=== PATIENT | female | born 1940 | race American Indian/Alaskan Native ===

== ENCOUNTER 2016-12-22 15:09 | Inpatient (IN) | payer MEDICARE ==
[2016-12-22 16:30] LABS: Basophils % (Auto) 0.6 % (0.0-1.8); Hematocrit 43.8 % (30.3-42.9); Hemoglobin 14.4 gm/dl (10.1-14.3); Mean Corpuscular HGB Conc 33 % (30-34); Mean Corpuscular Hemoglobin 30 pg (28-32); Mean Corpuscular Volume 90 fl (79-97); Platelet Count 240 K/mm3 (140-440); Red Blood Count 4.86 M/mm3 (3.65-5.03); Red Cell Distribution Width 14.1 % (13.2-15.2); White Blood Count 8.6 K/mm3 (4.5-11.0)
[2016-12-22 16:52] LABS: BUN/Creatinine Ratio 23.33; Blood Urea Nitrogen 14 mg/dL (7-17); Calcium 9.3 mg/dL (8.4-10.2); Carbon Dioxide 30 mmol/L (22-30); Glucose 131 mg/dL (65-100); Potassium 3.7 mmol/L (3.6-5.0); Sodium 142 mmol/L (137-145)
[2016-12-22 17:05] LABS: Anion Gap 16 mmol/L
--- NOTE | 2016-12-22 18:15 | Emergency Department Report ---
ED Chest Pain HPI - General Chief Complaint: Chest Pain Stated Complaint: CHEST PAIN Time Seen by Provider: 12/22/16 17:42 Source: patient, family, EMS, old records reviewed (no previous meditech record) Mode of arrival: Stretcher Limitations: No Limitations - History of Present Illness Initial Comments: 76 yo female a past medical history CVA with residual left-sided deficit, diabetes, GERD, and hypertension presents to the hospital complaints of chest pain one prior to arrival. Chest pain was sudden onset after eating breakfast described as a tightness in 8/10 intensity. No radiation reported. Patient denies associated symptoms including shortness of breath, nausea, vomiting, or diaphoresis. Patient states pain is similar to previous GERD attacks but more severe and not bearable this time so she came to the ED. She drank boiling hot water and baking soda and states that that helped her pain prior to arrival. Patient has not had a stress test in many years. Her PMD is [facility]. Severity scale (0 -10): 0 - Related Data Home Medications Medication Instructions Recorded Confirmed Last Taken Unobtainable 12/22/16 12/22/16 Unknown Allergies Allergy/AdvReac Type Severity Reaction Status Date / Time No Known Allergies Allergy Unverified 12/22/16 15:59 STEFANIE score - Stefanie Score Age > 65: (1) Yes Aspirin use within the Past 7 Days: (0) No 3 or more CAD Risk Factors: (1) Yes 2 or more Angina events in past 24 hrs: (1) Yes Known CAD with more than 50% Stenosis: (0) No Elevated Cardiac Markers: (0) No ST Deviation Greater than 0.5mm: (0) No STEFANIE Score: 3 ED Review of Systems ROS: Stated complaint: CHEST PAIN Other details as noted in HPI Comment: All other systems reviewed and negative Other: Constitutional: No fevers chills Eyes: No eye pain visual changes ENT: No ear pain or throat pain Neck: Denies pain Respiratory: Denies cough wheezing shortness of breath Cardiovascular: Denies chest pain, palpitations, syncope GI: Denies abdominal pain, nausea, vomiting, diarrhea : Denies dysuria, urinary frequency, or urgency Musculoskeletal: Denies back pain, joint swelling Skin: Denies rash, lesions, erythema Neurologic: Denies headache, numbness, weakness Psychiatric: Denies suicidal ideation, hallucinations ED Past Medical Hx - Past Medical History Previous Medical History?: Yes Hx Hypertension: Yes Hx CVA: Yes Hx Diabetes: Yes Hx GERD: Yes Additional medical history: hyperlipidemia - Surgical History Past Surgical History?: No - Social History Smoking Status: Current Every Day Smoker Substance Use Type: None - Medications Home Medications: Home Medications Medication Instructions Recorded Confirmed Last Taken Type Unobtainable 12/22/16 12/22/16 Unknown History ED Physical Exam - General Limitations: No Limitations - Other Other exam information: General: No limitations, patient is alert in no acute distress Head exam: Atraumatic, normocephalic Eyes exam: Normal appearance, pupils equal reactive to light, extraocular movements intact ENT: Moist mucous membrane, normal oropharynx Neck exam: Normal inspection, full range of motion, no meningismus nontender Respiratory exam: Clear to auscultation bilateral, no wheezes, rales, crackles Cardiovascular: Normal rate and rhythm, normal heart sounds Abdomen: Soft, nondistended, and nontender, with normal bowel sounds, no rebound, or guarding Extremity: Full range of motion normal inspection no deformity Back: Normal Inspection, full range of motion, no tenderness Neurologic: Alert, oriented x3, cranial nerves intact, no motor or sensory deficit Psychiatric: normal affect, normal mood Skin: Warm, dry, intact ED Course Vital Signs 12/22/16 12/22/16 12/22/16 15:44 15:51 15:54 Temperature 98.5 F Pulse Rate 99 H Respiratory 18 Rate Blood Pressure 158/71 152/73 Blood Pressure 152/73 [Right] O2 Sat by Pulse 99 99 99 Oximetry 12/22/16 12/22/16 12/22/16 16:00 16:10 16:11 Temperature Pulse Rate Respiratory 14 Rate Blood Pressure 130/77 130/77 Blood Pressure [Right] O2 Sat by Pulse 98 98 100 Oximetry 12/22/16 12/22/16 12/22/16 16:21 16:30 16:41 Temperature Pulse Rate Respiratory Rate Blood Pressure 130/77 137/73 130/77 Blood Pressure [Right] O2 Sat by Pulse 98 98 99 Oximetry 12/22/16 12/22/16 12/22/16 16:51 17:00 17:08 Temperature 98.6 F Pulse Rate 89 Respiratory Rate Blood Pressure 130/77 136/66 Blood Pressure [Right] O2 Sat by Pulse 99 99 Oximetry 0212/22/16 12/22/16 17:10 17:21 17:30 Temperature Pulse Rate 97 H 96 H 84 Respiratory 14 20 14 Rate Blood Pressure 136/66 137/73 147/77 Blood Pressure [Right] O2 Sat by Pulse 98 70 L 99 Oximetry 12/22/16 12/22/16 12/22/16 17:41 17:51 18:00 Temperature Pulse Rate 88 84 84 Respiratory 18 15 20 Rate Blood Pressure 147/77 147/77 147/84 Blood Pressure [Right] O2 Sat by Pulse 100 95 99 Oximetry 12/22/16 12/22/16 12/22/16 18:11 18:21 18:30 Temperature Pulse Rate 82 87 83 Respiratory 12 16 8 L Rate Blood Pressure 136/66 136/66 151/83 Blood Pressure [Right] O2 Sat by Pulse 98 97 99 Oximetry 12/22/16 12/22/16 12/22/16 18:41 18:51 19:01 Temperature Pulse Rate 84 96 H 92 H Respiratory 16 14 11 L Rate Blood Pressure 151/83 151/83 166/81 Blood Pressure [Right] O2 Sat by Pulse 99 98 94 Oximetry 12/22/16 12/22/16 12/22/16 19:11 19:18 19:21 Temperature 98.6 F Pulse Rate 92 H 89 Respiratory 17 14 13 Rate Blood Pressure 166/81 166/81 Blood Pressure 150/90 [Right] O2 Sat by Pulse 97 98 88 Oximetry 12/22/16 12/22/16 12/22/16 19:30 19:41 19:54 Temperature Pulse Rate 85 85 85 Respiratory 15 10 L 18 Rate Blood Pressure 173/80 173/80 Blood Pressure 143/61 [Right] O2 Sat by Pulse 98 99 98 Oximetry - Reevaluation(s) Reevaluation #1: 12/22/16 19:25 Patient given aspirin in the ED. Remained pain-free ED Medical Decision Making - Lab Data Result diagrams: 12/22/16 16:19 12/22/16 16:19 Lab Results 12/22/16 12/22/16 Range/Units 16:19 16:19 WBC 8.6 (4.5-11.0) K/mm3 RBC 4.86 (3.65-5.03) M/mm3 Hgb 14.4 H (10.1-14.3) gm/dl Hct 43.8 H (30.3-42.9) % MCV 90 (79-97) fl MCH 30 (28-32) pg MCHC 33 (30-34) % RDW 14.1 (13.2-15.2) % Plt Count 240 (140-440) K/mm3 Lymph % (Auto) 21.3 (13.4-35.0) % [place] % (Auto) 9.1 H (0.0-7.3) % Eos % (Auto) 1.0 (0.0-4.3) % Baso % (Auto) 0.6 (0.0-1.8) % Lymph # 1.8 (1.2-5.4) K/mm3 [place] # 0.8 (0.0-0.8) K/mm3 Eos # 0.1 (0.0-0.4) K/mm3 Baso # 0.1 (0.0-0.1) K/mm3 Seg Neutrophils % 68.0 (40.0-70.0) % Seg Neutrophils # 5.9 (1.8-7.7) K/mm3 Sodium 142 (137-145) mmol/L Potassium 3.7 (3.6-5.0) mmol/L Chloride 100.0 (98-107) mmol/L Carbon Dioxide 30 (22-30) mmol/L Anion Gap 16 mmol/L BUN 14 (7-17) mg/dL Creatinine 0.6 L (0.7-1.2) mg/dL Estimated GFR > 60 ml/min BUN/Creatinine Ratio 23.33 % Glucose 131 H (65-100) mg/dL Calcium 9.3 (8.4-10.2) mg/dL Troponin T < 0.010 (0.00-0.029) ng/mL - EKG Data -: EKG Interpreted by Me (nsr, 87, lvh, inf infarct) - EKG Data When compared to previous EKG there are: previous EKG unavailable - Radiology Data Radiology results: report reviewed (cxr: naf) - Medical Decision Making Plan to admit to the hospital for further cardiac workup. No signs of STEMI at this time. - Differential Diagnosis atypical chest pain, SD, unstable angina, GERD Critical Care Time: No Critical care attestation.: If time is entered above; I have spent that time in minutes in the direct care of this critically ill patient, excluding procedure time. ED Disposition Clinical Impression: Chest pain, HTN (hypertension), Diabetes, History of CVA with residual deficit , Hx of gastroesophageal reflux (GERD) Disposition: OP ADMITTED IP TO THIS HOSP Is pt being admited?: Yes Does the pt Need Aspirin: Yes Condition: Stable Time of Disposition: 18:15
--- NOTE | 2016-12-22 18:31 | Admit Criteria Form ---
Admission Criteria Documentation: CHEST PAIN Clinical Indications for Admission to Inpatient Care (Place 'X' for any and all applicable criteria): Admission is indicated for chest pain and ANY ONE of the following(1)(2)(3)(4)(5 ): [ ]I. Angina with acute coronary syndrome (Also use Myocardial Infarction or Angina guideline) [ ]II. Hemodynamic instability [X]III. Angina needing acute intervention as indicated by ALL of the following( 11)(12): [X]a) Unstable angina is present as indicated by angina that is ANY ONE of the following: [X ]i) New onset [ ]ii) Nocturnal [ ]iii) Prolonged at rest [ ]iv) Progressive [X]b) Angina warrants acute intervention as indicated by ANY ONE of the following: [ ]i) Recurrent angina (e.g, not responding as previously to treatment) [X]ii) Angina at rest or with low-level activities despite initial medical therapy [ ]iii) New or presumably new ST-segment depression on ECG [ ]iv) Signs or symptoms of heart failure (eg, dyspnea, pulmonary edema) [ ]v) New or worsening mitral regurgitation [ ]vi) Hemodynamic instability [ ]vii) Dangerous arrhythmia (eg, sustained ventricular tachycardia) [ ]viii) History of percutaneous coronary intervention within 6 months [ ]ix) History of coronary artery bypass graft surgery [X]x) STEFANIE risk score of 2 or greater[A] [X]xi) History of Diabetes(14) [ ]xii) High-risk cardiac ischemia findings on noninvasive testing (e.g, echocardiogram, treadmill testing, nuclear scan) [ ]xiii) Chronic renal insufficiency (ie, estimated GFR less than 60 mL/min/1.732m) [ ]xiv) Left ventricular ejection fraction less than 40% [ ]IV. Evidence of NC (eg, cardiac biomarkers positive, ST-segment elevation on ECG) also use Myocardial Infarction Criteria Form. [ ]V. Pulmonary edema [ ]. Respiratory distress [ ]VII. Chest pain indicative of serious diagnosis other than coronary artery disease (eg, aortic dissection) [ ]VIII. Contraindications and/or Inappropriate clinical situations for Observational Care in patients with Chest Pain, when ANY ONE of the following is required: [ ]a) Patient with risk factor for pulmonary embolism, acute coronary syndrome and myocardial infarction (18) [ ]b) Patient with Pulmonary embolism require an average LOS of 4.3 days, therefore emergency department observation management is inappropriate 18,23 [ ]c) Painful condition/s in the elderly, have the highest rate of recidivism after emergency department observation management (10.8%) 20,21,22 [ ]d) Elevated cardiac biomarker requires intensive and exhaustive care (19) [ ]IX. General contraindications and/or Inappropriate clinical situations for Observational Care in patients with Chest Pain, when ANY ONE of the following is required: [ ]a) Prediction of prolongation of LOS based on ANY ONE of the following may be considered as a contraindication for observational care 2, 3, 4, 5, 6, 7, 8, 9, 10, 11 [ ]i) Age > 65 yrs. [ ]ii) Patient arriving by ambulance [ ]iii) Patient with high acuity [ ]iv) Patient requiring vital sign monitoring [ ]v) Patient on IV medication [ ]b) Systolic blood pressures 180mmHg 3,12 [ ]c) Patient with altered mental status including delirium and other alteration of consciousness, (3) [ ]d) Patient whose discharge disposition will be to a longterm home or rehabilitation home should not be managed in Emergency Department Observation Unit. CMS rule requires 3 days hospital stay before such placement. 3,13 [ ]e) Patient with failure to thrive due to broad array of etiologies 3,16,17 [ ]f) Inability to ambulate 3,14 Extended stay beyond goal length of stay may be needed for (1)(28): [ ]a) Specific condition diagnosed after evaluation (eg, pulmonary embolism, aortic dissection) [ ]b) Unstable angina [ ]c) Continued suspicion of acute coronary syndrome with inability to complete needed cardiac evaluation (eg, patient clinically unable to undergo stress testing) [ ]d) Myocardial infarction (Contents from ANGINA and CHEST PAIN clinical indications for admission to inpatient care have been integrated in this form) The original [employer] content created by [employer] has been revised. The portions of the content which have been revised are identified through the use of italic text or in bold, and [facility] has neither reviewed nor approved the modified material. All other unmodified content is copyright [employer]. Please see references footnoted in the original [facility] edition 2016 Admission Criteria Met: Yes
[2016-12-22] MEDS ORDERED: ASPIRIN PO ONE (18:36)
[2016-12-22] MEDS ORDERED: D50W (25GM) IV PRN (20:18)
[2016-12-22] MEDS ORDERED: NITROSTAT SL PRN (20:20)
--- NOTE | 2016-12-22 20:28 | History and Physical Report ---
History of Present Illness Date of examination: 12/22/16 Date of admission: 12/22/16 18:35 Chief complaint: Chest pain History of present illness: Patient is a 76-year-old woman history of CVA with left-sided deficit, type 2 diabetes mellitus, GERD and hypertension who presents with acute onset intermittent left sided dull tightness, nonradiating intermittent chest pain that felt like previous acid reflux that was relieved by drinking water with baking soda.the pain started after breakfast today. She denies any fevers, chills, nausea vomiting shortness of breath. She denies any severe headaches no other symptoms. Past History Past Medical History: other (as hpi) Past Surgical History: No surgical history Social history: smoking (assessment counselor on stopping to her and daughter Lauryn at bedside), full code. denies: alcohol abuse, prescription drug abuse, IV drug use Family history: no significant family history Medications and Allergies Allergies Allergy/AdvReac Type Severity Reaction Status Date / Time No Known Allergies Allergy Unverified 12/22/16 15:59 Home Medications Medication Instructions Recorded Confirmed Last Taken Type Unobtainable 12/22/16 12/22/16 Unknown History Active Meds: Active Medications Aspirin (Aspirin) 325 mg PO QDAY [facility] Atorvastatin Calcium (Lipitor) 40 mg PO QHS [facility] Dextrose (D50w (25gm)) 50 ml IV PRN PRN PRN Reason: Hypoglycemia Enoxaparin Sodium (Lovenox) 40 mg SUB-Q QDAY [facility] Insulin Aspart (Novolog) 0 units SUB-Q ACHS [facility] PRN Reason: Protocol Metoprolol Tartrate (Lopressor) 25 mg PO BID [facility] Nitroglycerin (Nitrostat) 0.4 mg SL .Q5MIN PRN PRN Reason: Chest Pain Review of Systems All systems: negative (as HPI and all other ROS reviewed and negative.) Exam - Physical Exam Narrative exam: GEN: WDWN, NAD, AWAKE, ALERT, ORIENTATED 3 HEENT: NCAT, PERRL, EOMI, OP WITH SEVERE peridontal DISEASE with LOOSE TEETH NECK: SUPPLE, NO THYROMEGALY, NO JVD, NO LAD CVS: RRR, NORMAL S1S2 LUNGS/CHEST: CTA B, NORMAL CHEST EXPANSION B, GOOD AIR ENTRY B ABD: SOFT NTND, GBS, NO REBOUND OR GUARDING EXT/SKIN: NO SIGNIFICANT EDEMA OR RASH MSK: FROM X 3 EXTREMITIES NEURO: CN 2-12 GROSSLY INTACT, NO NEW FOCAL DEFICITS, left-sided hemiparesis PSY: CALM - Constitutional Vitals: Temp Pulse Resp BP Pulse Ox 98.6 F 85 18 143/61 98 12/22/16 19:18 12/22/16 19:54 12/22/16 19:54 12/22/16 19:54 12/22/16 19:54 Results - Labs CBC & Chem 7: 12/22/16 16:19 12/22/16 16:19 Labs: Abnormal lab results 12/22/16 Range/Units 19:22 Troponin T 0.050 H D (0.00-0.029) ng/mL - Imaging and Cardiology EKG: image reviewed Assessment and Plan Patient is a 76-year-old woman history of CVA with left-sided deficit, type 2 diabetes mellitus, GERD and hypertension who presents with acute onset intermittent left sided dull tightness, nonradiating intermittent chest pain that felt like previous acid reflux that was relieved by drinking water with baking soda.the pain started after breakfast today. She denies any fevers, chills, nausea vomiting shortness of breath. She denies any severe headaches no other symptoms. 1. CP, ?GERD related: serial ce, stress test in am, treat with asa, bb, ntg and statin, ppi. Troponin went up slightly, consult Cardiology 2. Type 2 DM: ssi 3. Tobacco dependancy: nicotine patch 4. Htn: add BB
[2016-12-22] MEDS: LOPRESSOR PO SCH (22:49)
[2016-12-22] MEDS: NOVOLOG SUB-Q SCH (22:49)
[2016-12-23] MEDS: DILAUDID IM PRN ×2 (01:05→11:05)
[2016-12-23 06:21] LABS: Hematocrit 42.6 % (30.3-42.9); Hemoglobin 13.7 gm/dl (10.1-14.3); Mean Corpuscular HGB Conc 32 % (30-34); Mean Corpuscular Hemoglobin 29 pg (28-32); Mean Corpuscular Volume 89 fl (79-97); Platelet Count 220 K/mm3 (140-440); Red Blood Count 4.77 M/mm3 (3.65-5.03); Red Cell Distribution Width 14.1 % (13.2-15.2); White Blood Count 12.2 K/mm3 (4.5-11.0)
[2016-12-23] MEDS: ZOFRAN IV PRN ×2 (06:35→15:42)
[2016-12-23 06:52] LABS: BUN/Creatinine Ratio 21.42; Blood Urea Nitrogen 15 mg/dL (7-17); Calcium 9.6 mg/dL (8.4-10.2); Carbon Dioxide 29 mmol/L (22-30); Chloride 98.8 mmol/L (98-107); Glucose 182 mg/dL (65-100); Sodium 141 mmol/L (137-145)
[2016-12-23 07:13] LABS: Anion Gap 18 mmol/L; Potassium 4.5 mmol/L (3.6-5.0)
[2016-12-23 08:40] LABS: Creatine Kinase MB 6.7 ng/mL (0.0-4.0)
--- NOTE | 2016-12-23 09:38 | XRay Report ---
Single view chest: History: Chest pain. Findings: Cardiomegaly. Trachea is midline. No consolidation, pneumothorax or pleural effusion. Impression: No acute cardiopulmonary findings.
[2016-12-23] MEDS: HABITROL TD SCH (09:49)
[2016-12-23] MEDS: ASPIRIN PO SCH (09:49)
[2016-12-23] MEDS: NOVOLOG SUB-Q SCH ×4 (09:51→22:12)
[2016-12-23] MEDS: LOPRESSOR PO SCH ×2 (09:57→22:12)
[2016-12-23] MEDS ORDERED: LOVENOX SUB-Q SCH ×2 (10:00→22:00)
--- NOTE | 2016-12-23 13:01 | Progress Note ---
Assessment and Plan Assessment and plan: 1. Possible NSTEMI-with increasing troponin but inex is normal; We will repeat another troponin set. We'll follow-up with cardiology consult. We'll cancel stress test. We'll also get EKG and ECHO. Continue aspirin, statin and beta kendra. We'll start on anticoagulation; supplemental oxygen oxygen 2. Diabetes type 2-continue insulin sliding scale. Consistent carb cardiac diet. Monitor Accu-Cheks 3. Nicotine dependence-nicotine patch 4. Benign hypertension-continue beta kendra 5. Dyslipidemia- statin 6. DVT prophylaxis-on Lovenox Patient is a patient from [facility]-called Dr. 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 Absent: scleral icterus, conjunctival injection ENT: hearing intact, clear oral mucosa, no oropharyngeal erythema, no poor dentition - Neck Neck: Present: supple, normal ROM. Absent: enlarged thyroid, masses or JVD - Respiratory Respiratory effort: normal Respiratory: negative: diminished, rales, rhonchi, wheezing - Cardiovascular Rhythm: regular Heart Sounds: Present: S1 & S2. Absent: gallop - Extremities Extremities: no ischemia, pulses intact, pulses symmetrical, No edema Peripheral Pulses: within normal limits - Abdominal General gastrointestinal: soft, non-tender, non-distended, normal bowel sounds - Integumentary Integumentary: Present: clear - Psychiatric Psychiatric: appropriate mood/affect, intact judgment & insight, cooperative - Neurologic Neurologic: CNII-XII intact, moves all extremities Results - Labs CBC & Chem 7: 12/23/16 05:48 12/23/16 05:48 Labs: Laboratory Last Values WBC 12.2 K/mm3 (4.5-11.0) H 12/23/16 05:48 RBC 4.77 M/mm3 (3.65-5.03) 12/23/16 05:48 Hgb 13.7 gm/dl (10.1-14.3) 12/23/16 05:48 Hct 42.6 % (30.3-42.9) 12/23/16 05:48 MCV 89 fl (79-97) 12/23/16 05:48 MCH 29 pg (28-32) 12/23/16 05:48 MCHC 32 % (30-34) 12/23/16 05:48 RDW 14.1 % (13.2-15.2) 12/23/16 05:48 Plt Count 220 K/mm3 (140-440) 12/23/16 05:48 Lymph % (Auto) 21.3 % (13.4-35.0) 12/22/16 16:19 [place] % (Auto) 9.1 % (0.0-7.3) H 12/22/16 16:19 Eos % (Auto) 1.0 % (0.0-4.3) 12/22/16 16:19 Baso % (Auto) 0.6 % (0.0-1.8) 12/22/16 16:19 Lymph # 1.8 K/mm3 (1.2-5.4) 12/22/16 16:19 [place] # 0.8 K/mm3 (0.0-0.8) 12/22/16 16:19 Eos # 0.1 K/mm3 (0.0-0.4) 12/22/16 16:19 Baso # 0.1 K/mm3 (0.0-0.1) 12/22/16 16:19 Seg Neutrophils % 68.0 % (40.0-70.0) 12/22/16 16:19 Seg Neutrophils # 5.9 K/mm3 (1.8-7.7) 12/22/16 16:19 Sodium 141 mmol/L (137-145) 12/23/16 05:48 Potassium 4.5 mmol/L (3.6-5.0) D 12/23/16 05:48 Chloride 98.8 mmol/L (98-107) 12/23/16 05:48 Carbon Dioxide 29 mmol/L (22-30) 12/23/16 05:48 Anion Gap 18 mmol/L 12/23/16 05:48 BUN 15 mg/dL (7-17) 12/23/16 05:48 Creatinine 0.7 mg/dL (0.7-1.2) 12/23/16 05:48 Estimated GFR > 60 ml/min 12/23/16 05:48 BUN/Creatinine Ratio 21.42 % 12/23/16 05:48 Glucose 182 mg/dL (65-100) H 12/23/16 05:48 POC Glucose 175 (70-105) H 12/23/16 08:18 Calcium 9.6 mg/dL (8.4-10.2) 12/23/16 05:48 Total Creatine Kinase 247 units/L (30-135) H 12/23/16 07:55 CK-MB (CK-2) 6.7 ng/mL (0.0-4.0) H 12/23/16 07:55 CK-MB (CK-2) Rel Index 2.7 (0-4) 12/23/16 07:55 Troponin T 0.089 ng/mL (0.00-0.029) H D 12/22/16 22:56 Triglycerides 328 mg/dL (2-149) H 12/22/16 19:22 Cholesterol 227 mg/dL (50-199) H 12/22/16 19:22 LDL Cholesterol Direct 117 mg/dL (50-130) 12/22/16 19:22 HDL Cholesterol 45 mg/dL (40-59) 12/22/16 19:22 Cholesterol/HDL Ratio 5.04 % 12/22/16 19:22
--- NOTE | 2016-12-23 13:22 | Consultation ---
History of Present Illness Consult reason: chest pain History of present illness: Patient is a 76 year old female with a past medical history of CVA with left sided deficit, DM2, GERD, and HTN. Patient comes to the hospital with a complaint of left sided dull tightnes, nonradiating, intermittent chest pain lasting 30 minutes. Patient believes th chest pain is acid reflux. Patient denies orthopnea, pnd, palpitations, dizziness, or sycnope. Past History Past Medical History: other (as hpi) Past Surgical History: No surgical history Social history: smoking (curriculum counselor on stopping to her and daughter Lauryn at bedside), full code. denies: alcohol abuse, prescription drug abuse, IV drug use Family history: no significant family history Medications and Allergies Allergies Allergy/AdvReac Type Severity Reaction Status Date / Time No Known Allergies Allergy Unverified 12/22/16 15:59 Home Medications Medication Instructions Recorded Confirmed Last Taken Type Unobtainable 12/22/16 12/22/16 Unknown History Active Meds: Active Medications Aspirin (Aspirin) 325 mg PO QDAY [facility] Last Admin: 12/23/16 09:49 Dose: 325 mg Atorvastatin Calcium (Lipitor) 40 mg PO QHS [facility] Last Admin: 12/22/16 22:49 Dose: 40 mg Dextrose (D50w (25gm)) 50 ml IV PRN PRN PRN Reason: Hypoglycemia Enoxaparin Sodium (Lovenox) 40 mg SUB-Q QDAY [facility] Last Admin: 12/23/16 09:50 Dose: 40 mg Enoxaparin Sodium (Lovenox) 70 mg SUB-Q Q12HR [facility] Hydromorphone HCl (Dilaudid) 1 mg IM Q3H PRN PRN Reason: Pain Last Admin: 12/23/16 11:05 Dose: 1 mg Insulin Aspart (Novolog) 0 units SUB-Q ACHS [facility] PRN Reason: Protocol Last Admin: 12/23/16 09:51 Dose: 1 units Metoprolol Tartrate (Lopressor) 25 mg PO BID [facility] Last Admin: 12/23/16 09:57 Dose: 25 mg Nicotine (Habitrol) 14 mg TD QDAY [facility] Last Admin: 12/23/16 09:49 Dose: 14 mg Nitroglycerin (Nitrostat) 0.4 mg SL .Q5MIN PRN PRN Reason: Chest Pain Ondansetron HCl (Zofran) 4 mg IV Q4H PRN PRN Reason: Nausea And Vomiting Last Admin: 12/23/16 06:35 Dose: 4 mg Review of Systems All systems: negative Physical Examination Vital Signs Pulse Ox 99 12/22/16 15:44 General appearance: no acute distress HEENT: Positive: PERRL, EOMI Neck: Positive: neck supple Cardiac: Positive: Reg Rate and Rhythm, S1/S2 Lungs: Positive: Normal Exam Neuro: Positive: Grossly Intact Abdomen: Positive: Soft, Active Bowel Sounds Extremities: Present: normal Results 12/23/16 05:48 12/23/16 05:48 Cardiac Enzymes 12/23/16 Range/Units 07:55 CK-MB (CK-2) 6.7 H (0.0-4.0) ng/mL Lipids 12/22/16 Range/Units 19:22 Triglycerides 328 H (2-149) mg/dL Cholesterol 227 H (50-199) mg/dL HDL Cholesterol 45 (40-59) mg/dL Cholesterol/HDL Ratio 5.04 % CBC 12/23/16 Range/Units 05:48 WBC 12.2 H (4.5-11.0) K/mm3 RBC 4.77 (3.65-5.03) M/mm3 Hgb 13.7 (10.1-14.3) gm/dl Hct 42.6 (30.3-42.9) % Plt Count 220 (140-440) K/mm3 Comprehensive Metabolic Panel 12/23/16 Range/Units 05:48 Sodium 141 (137-145) mmol/L Potassium 4.5 D (3.6-5.0) mmol/L Chloride 98.8 (98-107) mmol/L Carbon Dioxide 29 (22-30) mmol/L BUN 15 (7-17) mg/dL Creatinine 0.7 (0.7-1.2) mg/dL Glucose 182 H (65-100) mg/dL Calcium 9.6 (8.4-10.2) mg/dL EKG interpretations - Telemetry EKG Rhythm: Sinus Rhythm Assessment and Plan 1. NSTEMI 2. Type 2 DM2 3. Tobacco dependancy - on nicotine patch 4. HTN Hold stress test start heparin medical therapy with BB, ASA, and statin Currently chest pain free check echo plan for [facility] on sunday
[2016-12-23] MEDS ORDERED: HEPARIN 10,000 UNITS/10 ML IV ONE (13:27)
[2016-12-23 14:10] LABS: Creatine Kinase MB 5.6 ng/mL (0.0-4.0)
[2016-12-23 14:17] LABS: Hematocrit 43.1 % (30.3-42.9); Hemoglobin 13.8 gm/dl (10.1-14.3)
[2016-12-23 14:29] LABS: INR 1.04 (0.87-1.13)
[2016-12-23 14:30] LABS: Partial Thromboplastin Time 28.1 Sec. (24.2-36.6)
[2016-12-23] MEDS: HEPARIN/ 0.45% NACL-25,000 UNIT/500 ML 25,000 UNIT/500 ML BAG IV SCH (15:39)
--- NOTE | 2016-12-24 00:10 | Progress Note ---
Assessment and Plan 1. NSTEMI 2. Type 2 DM2 3. Tobacco dependancy - on nicotine patch 4. HTN Hold stress test start heparin medical therapy with BB, ASA, and statin Currently chest pain free echo pending plan for [facility] on tomorrow Subjective Date of service: 12/24/16 Interval history: No acute events. Resting comfortably. No chest pain or sOB. Objective Vital Signs Temp Pulse Pulse Resp BP BP Pulse Ox 12/23/16 20:20 98.6 F 119 H 18 142/71 95 12/23/16 16:50 97.6 F 88 20 140/77 98 12/23/16 12:15 97.6 F 65 18 117/57 98 12/23/16 09:57 80 138/67 12/23/16 08:56 97 12/23/16 08:15 97.5 F L 80 20 138/67 96 12/23/16 04:10 97.6 F 74 18 154/76 100 12/23/16 04:00 70 12/23/16 01:32 97.5 F L 68 20 145/73 99 - Physical Examination HEENT: Positive: PERRL, EOMI Neck: Positive: neck supple Neuro: Positive: Grossly Intact Abdomen: Positive: Soft, Active Bowel Sounds Extremities: Present: normal - Labs and Meds Cardiac Enzymes 12/23/16 12/23/16 Range/Units 07:55 13:08 CK-MB (CK-2) 6.7 H 5.6 H (0.0-4.0) ng/mL Coagulation 12/23/16 Range/Units 13:43 PT 13.5 (12.2-14.9) Sec. INR 1.04 (0.87-1.13) APTT 28.1 (24.2-36.6) Sec. CBC 12/23/16 12/23/16 Range/Units 05:48 13:43 WBC 12.2 H (4.5-11.0) K/mm3 RBC 4.77 (3.65-5.03) M/mm3 Hgb 13.7 13.8 (10.1-14.3) gm/dl Hct 42.6 43.1 H (30.3-42.9) % Plt Count 220 235 (140-440) K/mm3 Comprehensive Metabolic Panel 12/23/16 Range/Units 05:48 Sodium 141 (137-145) mmol/L Potassium 4.5 D (3.6-5.0) mmol/L Chloride 98.8 (98-107) mmol/L Carbon Dioxide 29 (22-30) mmol/L BUN 15 (7-17) mg/dL Creatinine 0.7 (0.7-1.2) mg/dL Glucose 182 H (65-100) mg/dL Calcium 9.6 (8.4-10.2) mg/dL - Imaging and Cardiology EKG: image reviewed
[2016-12-24] MEDS: HABITROL TD SCH (09:17)
[2016-12-24] MEDS: ASPIRIN PO SCH (09:18)
[2016-12-24] MEDS: LOPRESSOR PO SCH ×2 (09:18→22:22)
[2016-12-24] MEDS: NOVOLOG SUB-Q SCH ×4 (11:13→22:23)
--- NOTE | 2016-12-24 11:20 | Progress Note ---
Assessment and Plan Assessment and plan: 1. NSTEMI with acute diastolic heart failure-troponin trending down; follow-up with cardiology consult appreciated; for cardiac catherization in the a.m . F/u ECHO. Continue aspirin, statin and beta kendra. Cont heparin gtt; supplemental oxygen oxygen 2. Diabetes type 2-continue insulin sliding scale. Consistent carb cardiac diet. Monitor Accu-Cheks 3. Nicotine dependence-nicotine patch 4. Benign hypertension-continue beta kendra 5. Dyslipidemia- statin 6. DVT prophylaxis-heparin History Interval history: f/u chest pain Patient seen at the bedside; no complaints; no chest pain Hospitalist Physical - Constitutional Vitals: Temp Pulse Resp BP Pulse Ox 98.8 F 104 H 20 155/95 97 12/24/16 07:35 12/24/16 09:18 12/24/16 07:35 12/24/16 09:18 12/24/16 10:00 General appearance: Present: no acute distress - EENT Eyes: Present: PERRL, EOM intact. Absent: scleral icterus, conjunctival injection ENT: hearing intact, clear oral mucosa, no oropharyngeal erythema, no poor dentition - Neck Neck: Present: supple, normal ROM. Absent: enlarged thyroid - Respiratory Respiratory effort: normal Respiratory: bilateral: diminished, negative: rales, rhonchi, wheezing - Cardiovascular Rhythm: regular Heart Sounds: Present: S1 & S2. Absent: gallop - Extremities Extremities: no ischemia, pulses intact, pulses symmetrical, No edema Peripheral Pulses: within normal limits - Abdominal General gastrointestinal: soft, non-tender, non-distended, normal bowel sounds - Integumentary Integumentary: Present: clear - Psychiatric Psychiatric: appropriate mood/affect, intact judgment & insight - Neurologic Neurologic: focal deficits (lT hemiplegia) Results - Labs CBC & Chem 7: 12/23/16 13:43 12/23/16 05:48 Labs: Laboratory Last Values WBC 12.2 K/mm3 (4.5-11.0) H 12/23/16 05:48 RBC 4.77 M/mm3 (3.65-5.03) 12/23/16 05:48 Hgb 13.8 gm/dl (10.1-14.3) 12/23/16 13:43 Hct 43.1 % (30.3-42.9) H 12/23/16 13:43 MCV 89 fl (79-97) 12/23/16 05:48 MCH 29 pg (28-32) 12/23/16 05:48 MCHC 32 % (30-34) 12/23/16 05:48 RDW 14.1 % (13.2-15.2) 12/23/16 05:48 Plt Count 235 K/mm3 (140-440) 12/23/16 13:43 Lymph % (Auto) 21.3 % (13.4-35.0) 12/22/16 16:19 [place] % (Auto) 9.1 % (0.0-7.3) H 12/22/16 16:19 Eos % (Auto) 1.0 % (0.0-4.3) 12/22/16 16:19 Baso % (Auto) 0.6 % (0.0-1.8) 12/22/16 16:19 Lymph # 1.8 K/mm3 (1.2-5.4) 12/22/16 16:19 [place]rie # 0.8 K/mm3 (0.0-0.8) 12/22/16 16:19 Eos # 0.1 K/mm3 (0.0-0.4) 12/22/16 16:19 Baso # 0.1 K/mm3 (0.0-0.1) 12/22/16 16:19 Seg Neutrophils % 68.0 % (40.0-70.0) 12/22/16 16:19 Seg Neutrophils # 5.9 K/mm3 (1.8-7.7) 12/22/16 16:19 PT 13.5 Sec. (12.2-14.9) 12/23/16 13:43 INR 1.04 (0.87-1.13) 12/23/16 13:43 APTT 28.1 Sec. (24.2-36.6) 12/23/16 13:43 Heparin Anti-Xa Level 1.08 U.I./ml (0.3-0.7) H 12/23/16 23:46 Sodium 141 mmol/L (137-145) 12/23/16 05:48 Potassium 4.5 mmol/L (3.6-5.0) D 12/23/16 05:48 Chloride 98.8 mmol/L (98-107) 12/23/16 05:48 Carbon Dioxide 29 mmol/L (22-30) 12/23/16 05:48 Anion Gap 18 mmol/L 12/23/16 05:48 BUN 15 mg/dL (7-17) 12/23/16 05:48 Creatinine 0.7 mg/dL (0.7-1.2) 12/23/16 05:48 Estimated GFR > 60 ml/min 12/23/16 05:48 BUN/Creatinine Ratio 21.42 % 12/23/16 05:48 Glucose 182 mg/dL (65-100) H 12/23/16 05:48 POC Glucose 137 (70-105) H 12/23/16 21:26 Calcium 9.6 mg/dL (8.4-10.2) 12/23/16 05:48 Total Creatine Kinase 249 units/L (30-135) H 12/23/16 13:08 CK-MB (CK-2) 5.6 ng/mL (0.0-4.0) H 12/23/16 13:08 CK-MB (CK-2) Rel Index 2.2 (0-4) 12/23/16 13:08 Troponin T 0.032 ng/mL (0.00-0.029) H D 12/23/16 13:08 Triglycerides 328 mg/dL (2-149) H 12/22/16 19:22 Cholesterol 227 mg/dL (50-199) H 12/22/16 19:22 LDL Cholesterol Direct 117 mg/dL (50-130) 12/22/16 19:22 HDL Cholesterol 45 mg/dL (40-59) 12/22/16 19:22 Cholesterol/HDL Ratio 5.04 % 12/22/16 19:22
[2016-12-25] MEDS: HEPARIN/ 0.45% NACL-25,000 UNIT/500 ML 25,000 UNIT/500 ML BAG IV SCH (04:59)
[2016-12-25 05:43] LABS: Hematocrit 38.4 % (30.3-42.9); Hemoglobin 12.6 gm/dl (10.1-14.3)
[2016-12-25] MEDS: NOVOLOG SUB-Q SCH ×3 (08:56→17:38)
[2016-12-25] MEDS ORDERED: NACL 0.9% 500 ML 500 ML ONE (09:11)
[2016-12-25 09:26] LABS: Anion Gap 15 mmol/L; BUN/Creatinine Ratio 22.85; Blood Urea Nitrogen 16 mg/dL (7-17); Calcium 8.8 mg/dL (8.4-10.2); Carbon Dioxide 26 mmol/L (22-30); Chloride 99.6 mmol/L (98-107); Glucose 124 mg/dL (65-100); Potassium 3.6 mmol/L (3.6-5.0); Sodium 137 mmol/L (137-145)
[2016-12-25 09:29] LABS: INR 1.05 (0.87-1.13)
[2016-12-25] MEDS ORDERED: VERSED ONE (09:52)
[2016-12-25] MEDS ORDERED: HEPARIN/NS 5000 UNIT/500ML(CATH LAB) 1,000 ML IR ONE (09:52)
[2016-12-25] MEDS ORDERED: SUBLIMAZE ONE (09:53)
[2016-12-25] MEDS ORDERED: XYLOCAINE 2% INFILTRATI ONE (09:53)
[2016-12-25] MEDS ORDERED: HEPARIN 10,000 UNITS/10 ML ONE (10:10)
[2016-12-25] MEDS ORDERED: NITROGLYCERIN SYRINGE 3 ML ONE (10:10)
--- NOTE | 2016-12-25 11:09 | Progress Note ---
Assessment and Plan - Patient Problems (1) Chest pain Current Visit: Yes Status: Acute Qualifiers: Chest pain type: C Plan to address problem: Cardiac cath done no complications. Findings: 1. Multivessel CAD. 2. EF 50-55%. We will evaluate options for multivessel revascularization Subjective Date of service: 12/25/16 Interval history: Cardiac cath done no complications. Findings: 1. Multivessel CAD. 2. EF 50-55%. We will evaluate options for multivessel revascularization. Objective Vital Signs Temp Pulse Pulse Resp BP BP Pulse Ox 12/25/16 08:39 76 12/25/16 04:25 98.3 F 78 20 134/71 96 12/25/16 00:25 98.3 F 96 H 22 118/64 99 12/24/16 22:22 98 H 114/69 12/24/16 22:00 20 12/24/16 20:34 99 12/24/16 20:20 98.0 F 98 H 22 114/69 100 12/24/16 17:25 98.1 F 101 H 20 136/76 96 - Physical Examination General: No Apparent Distress HEENT: Positive: PERRL, EOMI Neck: Positive: neck supple Cardiac: Positive: Reg Rate and Rhythm Lungs: Positive: Decreased Breath Sounds Neuro: Positive: Grossly Intact Abdomen: Positive: Soft, Active Bowel Sounds Skin: Positive: Clear Extremities: Absent: edema - Labs and Meds Coagulation 12/25/16 Range/Units 08:57 PT 13.6 (12.2-14.9) Sec. INR 1.05 (0.87-1.13) CBC 12/25/16 Range/Units 04:28 Hgb 12.6 (10.1-14.3) gm/dl Hct 38.4 (30.3-42.9) % Plt Count 201 (140-440) K/mm3 Comprehensive Metabolic Panel 12/25/16 Range/Units 08:57 Sodium 137 (137-145) mmol/L Potassium 3.6 (3.6-5.0) mmol/L Chloride 99.6 (98-107) mmol/L Carbon Dioxide 26 (22-30) mmol/L BUN 16 (7-17) mg/dL Creatinine 0.7 (0.7-1.2) mg/dL Glucose 124 H (65-100) mg/dL Calcium 8.8 (8.4-10.2) mg/dL - Imaging and Cardiology EKG: image reviewed
[2016-12-25] MEDS: LOPRESSOR PO SCH (11:31)
[2016-12-25] MEDS: ASPIRIN PO SCH (11:32)
[2016-12-25] MEDS: HABITROL TD SCH (11:32)
--- NOTE | 2016-12-25 11:50 | Cardiac Catherization Report ---
CARDIAC CATHETERIZATION REPORT REASON FOR PROCEDURE: Acute coronary syndrome, unstable angina. PROCEDURE: The patient was prepped and draped in a sterile fashion after informed consent. The right femoral artery was entered using the Seldinger technique followed by placement of a 6-Yi sheath. Selective left and right coronary angiography was performed using #4 right and left Cornel catheters. A pigtail catheter was used for left ventricle angiography. The catheters were removed, sheath removed, and hemostasis achieved using an Angio-Seal device. The patient was returned to the post-procedure unit in stable condition. There were no complications. FINDINGS: HEMODYNAMICS: Left ventricular end-diastolic pressure was 8. Ascending aortic pressure was 134/63. There was no significant pressure gradient on pullback across the aortic valve. CORONARY ANGIOGRAPHY: There was moderate to severe coronary calcification. The left main coronary artery contained mild luminal irregularities. The left anterior descending artery contained a proximal, 70-75% stenosis. This was followed by another, long 80-90% stenosis of the LAD in its mid segment. The first diagonal branch of the LAD, contained a 95% proximal stenosis, followed by diffuse severe disease of its mid and distal segments. The second diagonal branch of the LAD was a small caliber vessel that was also severely, diffusely diseased. The circumflex system was a relatively small caliber system. There was mild disease of the proximal vessel, following which there was a small caliber mid obtuse marginal branch that contained greater than 95% stenosis of its proximal segment. The AV groove circumflex then terminated in another small caliber terminal branch that contained two sequential 95% stenosis. The right coronary artery was dominant. This vessel was completely occluded in its proximal to mid segment. This was a chronic total occlusion. There was collateralization of the distal right coronary artery from the left coronary system. Left ventricular systolic function was at the lower limits of normal, ejection fraction of 50-55%. CONCLUSION: 1. Severe, 3-vessel disease as noted above. 2. Left ventricular systolic function at the lower limits of normal, ejection fraction of 50 to 55%. RECOMMENDATION: Multivessel revascularization will be considered. The patient due to previous CVA, left hemiparesis, and poor mobility, may be a poor candidate for surgical revascularization. [facility]# [id number] CA/NTS
[2016-12-25] MEDS ORDERED: NACL 0.9% 1000 ML 1,000 ML IV SCH (12:00)
--- NOTE | 2016-12-25 12:05 | Progress Note ---
Assessment and Plan Assessment and plan: 1. NSTEMI with acute diastolic heart failure-post cardiac cath with multi- vessel dx; F/u ECHO. Continue aspirin, statin and beta kendra; supplemental oxygen oxygen; f/u cardiology for further recommendations 2. Diabetes type 2-continue insulin sliding scale. Consistent carb cardiac diet. Monitor Accu-Cheks 3. Nicotine dependence-nicotine patch 4. Benign hypertension-continue beta kendra 5. Dyslipidemia- statin 6. DVT prophylaxis-heparin History Interval history: f/u chest pain Patient seen at the bedside; no complaints; no chest pain; had cardiac catherization this morning Hospitalist Physical - Constitutional Vitals: Temp Pulse Resp BP Pulse Ox 98.3 F 76 20 134/71 96 12/25/16 04:25 12/25/16 08:39 12/25/16 04:25 12/25/16 04:25 12/25/16 04:25 General appearance: Present: no acute distress - EENT Eyes: Present: PERRL, EOM intact. Absent: scleral icterus, conjunctival injection ENT: hearing intact, clear oral mucosa, no oropharyngeal erythema, no poor dentition - Neck Neck: Present: supple, normal ROM. Absent: enlarged thyroid, masses or JVD - Respiratory Respiratory effort: normal Respiratory: negative: diminished, rales, rhonchi, wheezing - Cardiovascular Rhythm: regular Heart Sounds: Present: S1 & S2 - Extremities Extremities: no ischemia, pulses intact, pulses symmetrical, No edema Peripheral Pulses: within normal limits - Abdominal General gastrointestinal: soft, non-tender, non-distended, normal bowel sounds - Integumentary Integumentary: Present: clear - Psychiatric Psychiatric: appropriate mood/affect, intact judgment & insight, cooperative - Neurologic Neurologic: CNII-XII intact, moves all extremities Results - Labs CBC & Chem 7: 12/25/16 04:28 12/25/16 08:57 Labs: Laboratory Last Values WBC 12.2 K/mm3 (4.5-11.0) H 12/23/16 05:48 RBC 4.77 M/mm3 (3.65-5.03) 12/23/16 05:48 Hgb 12.6 gm/dl (10.1-14.3) 12/25/16 04:28 Hct 38.4 % (30.3-42.9) 12/25/16 04:28 MCV 89 fl (79-97) 12/23/16 05:48 MCH 29 pg (28-32) 12/23/16 05:48 MCHC 32 % (30-34) 12/23/16 05:48 RDW 14.1 % (13.2-15.2) 12/23/16 05:48 Plt Count 201 K/mm3 (140-440) 12/25/16 04:28 Lymph % (Auto) 21.3 % (13.4-35.0) 12/22/16 16:19 Worth % (Auto) 9.1 % (0.0-7.3) H 12/22/16 16:19 Eos % (Auto) 1.0 % (0.0-4.3) 12/22/16 16:19 Baso % (Auto) 0.6 % (0.0-1.8) 12/22/16 16:19 Lymph # 1.8 K/mm3 (1.2-5.4) 12/22/16 16:19 Worth # 0.8 K/mm3 (0.0-0.8) 12/22/16 16:19 Eos # 0.1 K/mm3 (0.0-0.4) 12/22/16 16:19 Baso # 0.1 K/mm3 (0.0-0.1) 12/22/16 16:19 Seg Neutrophils % 68.0 % (40.0-70.0) 12/22/16 16:19 Seg Neutrophils # 5.9 K/mm3 (1.8-7.7) 12/22/16 16:19 PT 13.6 Sec. (12.2-14.9) 12/25/16 08:57 INR 1.05 (0.87-1.13) 12/25/16 08:57 APTT 28.1 Sec. (24.2-36.6) 12/23/16 13:43 Heparin Anti-Xa Level 0.23 U.I./ml (0.3-0.7) L 12/24/16 20:17 Sodium 137 mmol/L (137-145) 12/25/16 08:57 Potassium 3.6 mmol/L (3.6-5.0) 12/25/16 08:57 Chloride 99.6 mmol/L (98-107) 12/25/16 08:57 Carbon Dioxide 26 mmol/L (22-30) 12/25/16 08:57 Anion Gap 15 mmol/L 12/25/16 08:57 BUN 16 mg/dL (7-17) 12/25/16 08:57 Creatinine 0.7 mg/dL (0.7-1.2) 12/25/16 08:57 Estimated GFR > 60 ml/min 12/25/16 08:57 BUN/Creatinine Ratio 22.85 % 12/25/16 08:57 Glucose 124 mg/dL (65-100) H 12/25/16 08:57 POC Glucose 146 (70-105) H 12/24/16 22:08 Calcium 8.8 mg/dL (8.4-10.2) 12/25/16 08:57 Total Creatine Kinase 249 units/L (30-135) H 12/23/16 13:08 CK-MB (CK-2) 5.6 ng/mL (0.0-4.0) H 12/23/16 13:08 CK-MB (CK-2) Rel Index 2.2 (0-4) 12/23/16 13:08 Troponin T 0.032 ng/mL (0.00-0.029) H D 12/23/16 13:08 Triglycerides 328 mg/dL (2-149) H 12/22/16 19:22 Cardiac cath done no complications. Findings: 1. Multivessel CAD. 2. EF 50-55%. Cholesterol 227 mg/dL (50-199) H 12/22/16 19:22 LDL Cholesterol Direct 117 mg/dL (50-130) 12/22/16 19:22 HDL Cholesterol 45 mg/dL (40-59) 12/22/16 19:22 Cholesterol/HDL Ratio 5.04 % 12/22/16 19:22 Cardiac cath done no complications. Findings: 1. Multivessel CAD. 2. EF 50-55%.
--- NOTE | 2016-12-25 13:38 | Discharge Summary ---
Providers - Providers Date of Admission: 12/22/16 18:35 Date of discharge: 12/25/16 Attending physician: DREW BLANCO 12/22/16 20:19 Consult to Physician [CONS] Routine Consulting Provider: JEFFERY DANIELSON Reason For Exam: ACS Place consult to:: Chantel PENA Notified:: yes Was contact made?: Yes Time called:: 07:40 12/25/16 11:09 Consult to Cardiac Rehabilitation [CONS] Routine Reason For Exam: Cardiac Rehab Evaluation Primary care physician: RAT BREEDER Hospitalization Reason for admission: chest pain Condition: Stable Pertinent studies: Cardiac cath done no complications. Findings: 1. Multivessel CAD. 2. EF 50-55%. Hospital course: MIss Loomis presented to the ER with chest pain and was diagnosed with NSTEMI; she was treated with asa; statin; beta kendra and heparin gtt; she was seen by the braille proofreader and had cardiac catherization done which showed multi-vessel disease and arrangements were made for her to be transferred to [place] for CT evaluation. condition at discharge-stable 31 minutes spent on discharge Disposition: DISCHARGED TO HOME OR SELFCARE - Discharge Diagnoses (1) NSTEMI (non-ST elevated myocardial infarction) Status: Acute (2) Chest pain Status: Acute Qualifiers: Chest pain type: C (3) Diabetes Status: Chronic Qualifiers: Diabetes mellitus type: D Diabetes mellitus complication status: D Diabetes mellitus complication detail: D Diabetic retinopathy severity: D Proliferative retinopathy type: P Diabetes mellitus macular edema: D Diabetes mellitus halfway insulin use: D Laterality: L Chronic kidney disease stage: C (4) HTN (hypertension) Status: Chronic Qualifiers: Hypertension type: H Core Measure Documentation - Palliative Care Palliative Care/ Comfort Measures: Not Applicable - Core Measures Any of the following diagnoses?: acute NM - Acute NM Discharge Requirements Aspirin at discharge: Yes JON/ARB for LVSD if EF <40%: Not Applicable Beta kendra at discharge: Yes Statin for LDL = or >100 mg/dl on DC: Yes Exam - Constitutional Vitals: Temp Pulse Resp BP Pulse Ox 98.3 F 76 20 134/71 96 12/25/16 04:25 12/25/16 08:39 12/25/16 04:25 12/25/16 04:25 12/25/16 04:25 see exam in progress note for 12/25/16 Plan Activity: advance as tolerated Weight Bearing Status: Weight Bear as Tolerated Diet: low fat, low cholesterol, low salt, diabetic Follow up with: PRIMARY CARE, [Primary Care Provider] - 3-5 Days
[2016-12-25] MEDS ORDERED: TYLENOL PO PRN (17:11)
[2016-12-25 18:19] VITALS: BP 142/75
[2016-12-26] MEDS ORDERED: NITRO DUR TD SCH (06:00)
== END 2016-12-25 19:30 | disposition home or self-care (01) | DRG 280 ==
LOC: ED 15:09 → 4A 18:35
PROVIDERS: ADMIT Internal Medicine; ATTEND Hospitalist
PROC: 4A023N7 Measurement of Cardiac Sampling and Pressure, Left Heart, Percutaneous Approach (ICD-10-PCS; principal; 2016-12-25)
PROC: B2111ZZ Fluoroscopy of Multiple Coronary Arteries using Low Osmolar Contrast (ICD-10-PCS; 2016-12-25)
PROC: B2151ZZ Fluoroscopy of Left Heart using Low Osmolar Contrast (ICD-10-PCS; 2016-12-25)
DX: I21.4 Non-ST elevation (NSTEMI) myocardial infarction (principal); I50.31 Acute diastolic (congestive) heart failure; I69.354 Hemiplegia and hemiparesis following cerebral infarction affecting left non-dominant side; E11.9 Type 2 diabetes mellitus without complications; E78.5 Hyperlipidemia, unspecified; K21.9 Gastro-esophageal reflux disease without esophagitis; I20.0 Unstable angina; I11.0 Hypertensive heart disease with heart failure; F17.200 Nicotine dependence, unspecified, uncomplicated; Z79.4 Long term (current) use of insulin; Z87.19 Personal history of other diseases of the digestive system
CPT/HCPCS: 36415; 71010; 80048; 80061; 82550; 82553; 82962; 84484; 85014; 85018; 85025; 85027; 85049; 85520; 85610; 85730; 93005; 93010; 93306; 93458; A9270-GY; C1760; C1894; J1170; J1644; J1650; J1815; J2250; J2405; J3010; J7030; J7040; Q9967

== ENCOUNTER 2017-12-26 21:20 | Inpatient (IN) | payer MEDICARE ==
[2017-12-26] MEDS ORDERED: MORPHINE IV ONE (21:48)
[2017-12-26] MEDS ORDERED: NITRO-BID 2% TP ONE (21:48)
[2017-12-26] MEDS ORDERED: ASPIRIN PO ONE (21:48)
[2017-12-26] MEDS ORDERED: ZOFRAN IV ONE (21:48)
[2017-12-26 22:20] LABS: Basophils # (Auto) 0.1 K/mm3 (0.0-0.1); Basophils % (Auto) 1.3 % (0.0-1.8); Eosinophils # (Auto) 0.3 K/mm3 (0.0-0.4); Eosinophils % (Auto) 3.7 % (0.0-4.3); Hematocrit 39.6 % (30.3-42.9); Hemoglobin 13.4 gm/dl (10.1-14.3); Lymphocytes # (Auto) 2.5 K/mm3 (1.2-5.4); Lymphocytes % (Auto) 31.3 % (13.4-35.0); Mean Corpuscular HGB Conc 34 % (30-34); Mean Corpuscular Hemoglobin 30 pg (28-32); Mean Corpuscular Volume 90 fl (79-97); Monocytes # (Auto) 0.6 K/mm3 (0.0-0.8); Monocytes % (Auto) 7.4 % (0.0-7.3); Platelet Count 219 K/mm3 (140-440); Red Blood Count 4.39 M/mm3 (3.65-5.03); Red Cell Distribution Width 14.5 % (13.2-15.2)
[2017-12-26 22:30] LABS: Alanine Aminotransferase 14 units/L (7-56); Albumin 3.3 g/dL (3.9-5); BUN/Creatinine Ratio 18; Blood Urea Nitrogen 14 mg/dL (7-17); Calcium 8.7 mg/dL (8.4-10.2); Hemolysis Index 25
--- NOTE | 2017-12-26 22:33 | Emergency Department Report ---
HPI - General Chief Complaint: Chest Pain Time Seen by Provider: 12/26/17 21:37 - HPI HPI: Room 8 The patient is a 77-year-old female presenting with a chief complaint of chest pain. Patient states her symptoms began approximately one hour ago after eating she developed dull substernal chest pain has been intermittent and associated with shortness of breath, nausea/vomiting but no diaphoresis. Family states the patient had chest pain momentarily last week for an undetermined amount of time. The patient currently a chest pain score of 5/10. The patient has a history of coronary artery disease and had a cardiac stent placed approximately 6 months ago per family. Location: Chest Duration: Constant 1 hour Quality: Dull Severity: 5/10 Modifying factors: [see above] Context: [see above] Mode of transportation: [not driving] ED Past Medical Hx - Past Medical History Previous Medical History?: Yes Hx Hypertension: Yes Hx CVA: Yes Hx Diabetes: Yes Hx GERD: Yes Additional medical history: hyperlipidemia, coronary artery disease - Surgical History Hx Coronary Stent: Yes - Family History Family history: no significant - Social History Smoking Status: Current Every Day Smoker (1/7 per day) Substance Use Type: None (denies illicit drug use) - Medications Home Medications: Home Medications Medication Instructions Recorded Confirmed Last Taken Type Aspirin [Aspirin TAB] 325 mg PO QDAY tablet 12/25/16 Unknown Rx AtorvaSTATin [Lipitor] 40 mg PO QHS tablet 12/25/16 Unknown Rx Metoprolol [Lopressor TAB] 25 mg PO BID tablet 12/25/16 Unknown Rx Nitroglycerin [Nitro Dur] 0.4 mg TD QDAY@0600 patch 12/25/16 Unknown Rx ED Review of Systems ROS: Stated complaint: CHEST PAIN Other details as noted in HPI Constitutional: denies: diaphoresis Respiratory: shortness of breath Cardiovascular: chest pain Gastrointestinal: nausea, vomiting Physical Exam - Physical Exam Vital Signs: Vital Signs 12/26/17 12/26/17 21:30 21:45 Temperature 98 F Pulse Rate 93 H Respiratory 20 Rate Physical Exam: GENERAL: The patient is well-developed well-nourished female lying on stretcher not appearing to be in acute distress. [] HEENT: Normocephalic. Atraumatic. Extraocular motions are intact. Patient has moist mucous membranes. NECK: Supple. Trachea midline CHEST/LUNGS: Clear to auscultation. There is no respiratory distress noted. HEART/CARDIOVASCULAR: Regular. There is no tachycardia. There is no gallop rub or murmur. ABDOMEN: Abdomen is soft, nontender. Patient has normal bowel sounds. There is no abdominal distention. SKIN: There is no rash. There is 1-2+ bilateral lower extremity pitting edema. There is no diaphoresis. NEURO: The patient is awake, alert, and oriented. The patient is cooperative. The patient has residual left-sided weakness from previous CVA. The patient has normal speech MUSCULOSKELETAL: There is no evidence of acute injury. ED Course Vital Signs 12/26/17 12/26/17 21:30 21:45 Temperature 98 F Pulse Rate 93 H Respiratory 20 Rate - Consultations Consultation #1: 12/27/17 00:43 [facility] paged 12/27/17 01:19 No return call from [facility] yet. Repeat paged sent 12/27/17 01:[address] Gardner. May keep the patient here ED Medical Decision Making - Lab Data Result diagrams: 12/26/17 21:51 12/26/17 21:51 Laboratory Tests 12/26/17 12/26/17 12/26/17 21:51 21:51 21:51 WBC 7.8 RBC 4.39 Hgb 13.4 Hct 39.6 MCV 90 MCH 30 MCHC 34 RDW 14.5 Plt Count 219 Lymph % (Auto) 31.3 [place] % (Auto) 7.4 H Eos % (Auto) 3.7 Baso % (Auto) 1.3 Lymph # 2.5 [place] # 0.6 Eos # 0.3 Baso # 0.1 Seg Neutrophils % 56.3 Seg Neutrophils # 4.4 PT 13.6 INR 0.99 APTT 27.3 D-Dimer 489.27 H Sodium 140 Potassium 3.4 L Chloride 100.2 Carbon Dioxide 26 Anion Gap 17 BUN 14 Creatinine 0.8 Estimated GFR > 60 BUN/Creatinine Ratio 18 Glucose 213 H Calcium 8.7 Total Bilirubin 0.20 AST 19 ALT 14 Alkaline Phosphatase 65 Total Creatine Kinase CK-MB (CK-2) CK-MB (CK-2) Rel Index Troponin T NT-Pro-B Natriuret Pep Total Protein 6.8 Albumin 3.3 L Albumin/Globulin Ratio 0.9 12/26/17 21:51 WBC RBC Hgb Hct MCV MCH MCHC RDW Plt Count Lymph % (Auto) [place] % (Auto) Eos % (Auto) Baso % (Auto) Lymph # [place] # Eos # Baso # Seg Neutrophils % Seg Neutrophils # PT INR APTT D-Dimer Sodium Potassium Chloride Carbon Dioxide Anion Gap BUN Creatinine Estimated GFR BUN/Creatinine Ratio Glucose Calcium Total Bilirubin AST ALT Alkaline Phosphatase Total Creatine Kinase 83 CK-MB (CK-2) 1.9 CK-MB (CK-2) Rel Index 2.2 Troponin T < 0.010 NT-Pro-B Natriuret Pep 35.39 Total Protein Albumin Albumin/Globulin Ratio - EKG Data -: EKG Interpreted by Me EKG shows normal: sinus rhythm Rate: normal - EKG Data When compared to previous EKG there are: no significant change Interpretation: unchanged when compared t (12/22/2016) - Radiology Data Radiology results: report reviewed (CT chest), image reviewed (CT chest) FINAL REPORT PROCEDURE: CT ANGIO CHEST TECHNIQUE: Computerized tomographic angiography of the chest was performed after the IV injection of iodinated nonionic contrast including image processing. The image data was postprocessed using 2-dimensional multiplanar reformatted (MPR) and 3-dimensional (MIP and/or volume rendered) techniques. HISTORY: chest pain COMPARISON: No prior studies are available for comparison. FINDINGS: Pulmonary outflow tract, right and left main pulmonary arteries and their proximal branches: Clear, no filling defects seen to suggest pulmonary embolus. Pericardium: No evidence of pericardial effusion. Thoracic aorta: Mild atherosclerotic changes are present, no evidence of aneurysmal dilatation or dissection. Coronary arteries: Appear calcified. There may be a coronary artery stent in place. Mediastinum and hilar regions: Nonspecific subcentimeter lymph nodes are visualized. No pathologically enlarged lymph nodes or masses are identified. Calcified lymph node visualized inferior to the right mainstem bronchus. Lung Agu[place]: There is a small amount of dependent atelectasis. Calcified granulomas also seen in the right lower lobe. No effusions dense consolidations or masses are identified. Upper abdomen: No acute or focal abnormality is seeen. Other: There is significant concave surface of the posterior wall the upper trachea consistent with tracheal malacia. The AP diameter of the trachea is narrowed to 5 millimeters. IMPRESSION: No evidence of pulmonary embolus. Atherosclerosis coronary arteries. There may be a coronary artery stent in place. Prior granulomatous disease. There appears to be dependent atelectasis without focal consolidations effusions or masses. Concave surface posterior wall the trachea consistent with tracheal malacia. AP diameter of the trachea significantly narrowed. Transcribed By: DFN Dictated By: DENIS VU MD Electronically Authenticated By: DENIS VU MD Signed Date/Time: 12/26/172057 DD/ 57 TD/TT: 12/26/172057 - Differential Diagnosis ACS, GERD, pericarditis, PE Critical care attestation.: If time is entered above; I have spent that time in minutes in the direct care of this critically ill patient, excluding procedure time. ED Disposition Clinical Impression: Chest pain Disposition: -09 OP ADMIT IP TO THIS HOSP Is pt being admited?: Yes Does the pt Need Aspirin: Yes Condition: Fair Instructions: Chest Pain (ED) Referrals: PRIMARY CARE, [Primary Care Provider] - 3-5 Days Time of Disposition: 01:39 (hospitalist notified (Dr Pierson))
[2017-12-26 22:34] LABS: Creatine Kinase MB 1.9 ng/mL (0.0-4.0)
[2017-12-26 22:46] LABS: INR 0.99 (0.87-1.13); Partial Thromboplastin Time 27.3 Sec. (24.2-36.6)
[2017-12-27] MEDS ORDERED: NACL ONE
--- NOTE | 2017-12-27 01:03 | Cat Scan Report ---
FINAL REPORT PROCEDURE: CT ANGIO CHEST TECHNIQUE: Computerized tomographic angiography of the chest was performed after the IV injection of iodinated nonionic contrast including image processing. The image data was postprocessed using 2-dimensional multiplanar reformatted (MPR) and 3-dimensional (MIP and/or volume rendered) techniques. HISTORY: chest pain COMPARISON: No prior studies are available for comparison. FINDINGS: Pulmonary outflow tract, right and left main pulmonary arteries and their proximal branches: Clear, no filling defects seen to suggest pulmonary embolus. Pericardium: No evidence of pericardial effusion. Thoracic aorta: Mild atherosclerotic changes are present, no evidence of aneurysmal dilatation or dissection. Coronary arteries: Appear calcified. There may be a coronary artery stent in place. Mediastinum and hilar regions: Nonspecific subcentimeter lymph nodes are visualized. No pathologically enlarged lymph nodes or masses are identified. Calcified lymph node visualized inferior to the right mainstem bronchus. Lung Agu[place]: There is a small amount of dependent atelectasis. Calcified granulomas also seen in the right lower lobe. No effusions dense consolidations or masses are identified. Upper abdomen: No acute or focal abnormality is seeen. Other: There is significant concave surface of the posterior wall the upper trachea consistent with tracheal malacia. The AP diameter of the trachea is narrowed to 5 millimeters. IMPRESSION: No evidence of pulmonary embolus. Atherosclerosis coronary arteries. There may be a coronary artery stent in place. Prior granulomatous disease. There appears to be dependent atelectasis without focal consolidations effusions or masses. Concave surface posterior wall the trachea consistent with tracheal malacia. AP diameter of the trachea significantly narrowed.
[2017-12-27] MEDS ORDERED: D50W (25GM) Syringe IV PRN (06:00)
--- NOTE | 2017-12-27 06:09 | History and Physical Report ---
History of Present Illness Date of examination: 12/27/17 Date of admission: 12/27/17 01:37 Chief complaint: Chest pain History of present illness: 77-year-old -[place] female with past medical history significant for CVA with left-sided hemiplegia, hypertension, diabetes mellitus, hyperlipidemia , CAD status post stent placement a year ago, presented to emergency department complaining of substernal chest pain and tightness. The pain is 5 out of 10 in intensity, with no radiation, associated with tightness but no fever, chills, diaphoresis, palpitation. The pain is intermittent alleviating or aggravating factors identified. Patient had similar presentation a year ago and was transferred to [place] and stent was placed. EKG no change from baseline. CTA negative for PE. REVIEW OF SYSTEMS: GENERAL: no weight change, no fatigue, no fever HEAD: no head ache EYES: no blurry vision, no acute visual loss EARS: no hearing loss, no discharge, no earache NOSE: no stuffiness, no sneezing, no discharge MOUTH, THROAT AND NECK: no bleeding gums, no sore throat, no swollen neck CARDIAC: no palpitations, no dyspnea on exertion, no orthopnea, no PND, left lower extremity edema, + chest pain RESPIRATORY: no shortness of breath, no wheeze, no cough, no sputum, no hemoptysis, no asthma GI: no decreased appetite, no nausea, no vomiting, no dysphagia, no diarrhea, no constipation, no abdominal pain URINARY: no change in frequency, no urgency, no polyuria, no hematuria, no incontinence MUSCULOSKELETAL: no muscle weakness, no pain, no joint stiffness NEUROLOGIC: no tingling, no tremors, left-sided paralysis HEMATOLOGIC: no anemia, no easy bruising SKIN: no rashes ENDOCRINE: no heat/cold intolerance, no polyuria, no polydipsia, no thyroid problems, + diabetes PSYCHIATRIC: no anxiety, no depression, no suicidal ideations Past History Past Medical History: CAD, diabetes, hypertension, stroke Past Surgical History: No surgical history Social history: smoking (to 2 cigarettes per day), full code. denies: alcohol abuse, prescription drug abuse, IV drug use Family history: no significant family history Medications and Allergies Allergies Allergy/AdvReac Type Severity Reaction Status Date / Time No Known Allergies Allergy Unverified 12/22/16 15:59 Home Medications Medication Instructions Recorded Confirmed Last Taken Type Aspirin [Aspirin TAB] 325 mg PO QDAY tablet 12/25/16 Unknown Rx AtorvaSTATin [Lipitor] 40 mg PO QHS tablet 12/25/16 Unknown Rx Metoprolol [Lopressor TAB] 25 mg PO BID tablet 12/25/16 Unknown Rx Nitroglycerin [Nitro Dur] 0.4 mg TD QDAY@0600 patch 12/25/16 Unknown Rx Active Meds: Active Medications Aspirin (Aspirin) 325 mg PO QDAY [facility] Atorvastatin Calcium (Lipitor) 40 mg PO QHS [facility] Dextrose (D50w (25gm) Syringe) 50 ml IV PRN PRN PRN Reason: Hypoglycemia Insulin Aspart (Novolog) 0 units SUB-Q ACHS [facility] PRN Reason: Protocol Insulin Detemir (Levemir) 10 units SUB-Q QHS [facility] Metoprolol Tartrate (Lopressor) 25 mg PO BID [facility] Nitroglycerin (Nitro Dur) 0.4 mg TD QDAY@0600 [facility] Exam - Physical Exam Narrative exam: Not in cardiopulmonary distress. The patient appeared well nourished and normally developed. Vital signs as documented. Head exam is unremarkable. No scleral icterus . Neck is without jugular venous distension, thyromegaly, or carotid bruits. Lungs are clear to auscultation. Cardiac exam reveals regular rate and Rhythm. Abdominal exam reveals normal bowel sounds, no masses, no organomegaly and no aortic enlargement. Extremities left leg edema. [employer]: Alert and oriented 3. Right-sided weakness. - Constitutional Vitals: Temp Pulse Resp BP Pulse Ox 98 F 91 H 18 114/68 99 12/26/17 21:45 12/27/17 05:30 12/27/17 05:30 12/27/17 05:30 12/27/17 05:30 Results - Labs CBC & Chem 7: 12/26/17 21:51 12/26/17 21:51 Labs: Laboratory Last Values WBC 7.8 K/mm3 (4.5-11.0) 12/26/17 21:51 RBC 4.39 M/mm3 (3.65-5.03) 12/26/17 21:51 Hgb 13.4 gm/dl (10.1-14.3) 12/26/17 21:51 Hct 39.6 % (30.3-42.9) 12/26/17 21:51 MCV 90 fl (79-97) 12/26/17 21:51 MCH 30 pg (28-32) 12/26/17 21:51 MCHC 34 % (30-34) 12/26/17 21:51 RDW 14.5 % (13.2-15.2) 12/26/17 21:51 Plt Count 219 K/mm3 (140-440) 12/26/17 21:51 Lymph % (Auto) 31.3 % (13.4-35.0) 12/26/17 21:51 [place] % (Auto) 7.4 % (0.0-7.3) H 12/26/17 21:51 Eos % (Auto) 3.7 % (0.0-4.3) 12/26/17 21:51 Baso % (Auto) 1.3 % (0.0-1.8) 12/26/17 21:51 Lymph # 2.5 K/mm3 (1.2-5.4) 12/26/17 21:51 [place] # 0.6 K/mm3 (0.0-0.8) 12/26/17 21:51 Eos # 0.3 K/mm3 (0.0-0.4) 12/26/17 21:51 Baso # 0.1 K/mm3 (0.0-0.1) 12/26/17 21:51 Seg Neutrophils % 56.3 % (40.0-70.0) 12/26/17 21:51 Seg Neutrophils # 4.4 K/mm3 (1.8-7.7) 12/26/17 21:51 PT 13.6 Sec. (12.2-14.9) 12/26/17 21:51 INR 0.99 (0.87-1.13) 12/26/17 21:51 APTT 27.3 Sec. (24.2-36.6) 12/26/17 21:51 D-Dimer 489.27 ng/mlDDU (0-234) H 12/26/17 21:51 Sodium 140 mmol/L (137-145) 12/26/17 21:51 Potassium 3.4 mmol/L (3.6-5.0) L 12/26/17 21:51 Chloride 100.2 mmol/L (98-107) 12/26/17 21:51 Carbon Dioxide 26 mmol/L (22-30) 12/26/17 21:51 Anion Gap 17 mmol/L 12/26/17 21:51 BUN 14 mg/dL (7-17) 12/26/17 21:51 Creatinine 0.8 mg/dL (0.7-1.2) 12/26/17 21:51 Estimated GFR > 60 ml/min 12/26/17 21:51 BUN/Creatinine Ratio 18 % 12/26/17 21:51 Glucose 213 mg/dL (65-100) H 12/26/17 21:51 Calcium 8.7 mg/dL (8.4-10.2) 12/26/17 21:51 Total Bilirubin 0.20 mg/dL (0.1-1.2) 12/26/17 21:51 AST 19 units/L (5-40) 12/26/17 21:51 ALT 14 units/L (7-56) 12/26/17 21:51 Alkaline Phosphatase 65 units/L (35-129) 12/26/17 21:51 Total Creatine Kinase 83 units/L (30-135) 12/26/17 21:51 CK-MB (CK-2) 1.9 ng/mL (0.0-4.0) 12/26/17 21:51 CK-MB (CK-2) Rel Index 2.2 (0-4) 12/26/17 21:51 Troponin T < 0.010 ng/mL (0.00-0.029) 12/26/17 21:51 NT-Pro-B Natriuret Pep 35.39 pg/mL (0-900) 12/26/17 21:51 Total Protein 6.8 g/dL (6.3-8.2) 12/26/17 21:51 Albumin 3.3 g/dL (3.9-5) L 12/26/17 21:51 Albumin/Globulin Ratio 0.9 % 12/26/17 21:51 - Imaging and Cardiology EKG: image reviewed (no change from baseline) CT scan - chest: report reviewed (no PE) Assessment and Plan Assessment and plan: Chest pain CAD CVA with left-sided residual weakness Diabetes mellitus type 2 hypoglycemia Hyperlipidemia Active tobacco use - Troponin was negative, EKG no change from baseline - Cardiology consulted - Resume appropriate home medications - Left lower extremity duplex DVT prophylaxis - On heparin Disposition - Admit to telemetry floor. Advance Directives: Yes VTE prophylaxis?: Chemical Plan of care discussed with patient/family: Yes
[2017-12-27] MEDS: NITRO DUR TD SCH (07:18)
[2017-12-27] MEDS: NOVOLOG SUB-Q SCH ×4 (08:38→22:15)
[2017-12-27] MEDS ORDERED: ASPIRIN PO SCH (10:00)
[2017-12-27] MEDS: LOPRESSOR PO SCH ×2 (11:15→22:10)
[2017-12-27] MEDS: HEPARIN SUB-Q SCH ×3 (11:15→22:14)
--- NOTE | 2017-12-27 11:28 | Consultation ---
History of Present Illness Consult date: 12/27/17 Consult reason: chest pain History of present illness: This is a 77yr old woman with a history of Diabetes, Hypertension and prior CVA with left hemiparesis. She has a history of multivessel coronary artery disease. A year ago, she was referred for CABG but was considered not a candidate for surgery. Ultimately, she had atherectomy followed by coronary stenting of the LAD using drug eluting stent. Ejection fraction 50-55%. Patient was brought to this hospital with complaints of chest pain. There are no reports of shortness of breath or palpitations. There was no pre-syncope or syncope. Initial workup in the emergency department with cardiac enzymes are normal. Her EKG is a sinus rhythm, old inferior WA. A cardiac consultation was requested for further evaluation. Past History Past Medical History: CAD, diabetes, hypertension, stroke Past Surgical History: No surgical history Social history: smoking (to 2 cigarettes per day), full code. denies: alcohol abuse, prescription drug abuse, IV drug use Family history: no significant family history Medications and Allergies Allergies Allergy/AdvReac Type Severity Reaction Status Date / Time No Known Allergies Allergy Unverified 12/22/16 15:59 Home Medications Medication Instructions Recorded Confirmed Last Taken Type Aspirin [Aspirin TAB] 325 mg PO QDAY tablet 12/25/16 Unknown Rx AtorvaSTATin [Lipitor] 40 mg PO QHS tablet 12/25/16 Unknown Rx Metoprolol [Lopressor TAB] 25 mg PO BID tablet 12/25/16 Unknown Rx Nitroglycerin [Nitro Dur] 0.4 mg TD QDAY@0600 patch 12/25/16 Unknown Rx Active Meds: Active Medications Aspirin (Aspirin) 325 mg PO QDAY [facility] Last Admin: 12/27/17 11:15 Dose: 325 mg Atorvastatin Calcium (Lipitor) 40 mg PO QHS [facility] Dextrose (D50w (25gm) Syringe) 50 ml IV PRN PRN PRN Reason: Hypoglycemia Heparin Sodium (Porcine) (Heparin) 5,000 unit SUB-Q Q12HR [facility] Last Admin: 12/27/17 11:15 Dose: Not Given Insulin Aspart (Novolog) 0 units SUB-Q ACHS [facility] PRN Reason: Protocol Last Admin: 12/27/17 08:38 Dose: 3 units Insulin Detemir (Levemir) 10 units SUB-Q QHS [facility] Metoprolol Tartrate (Lopressor) 25 mg PO BID [facility] Last Admin: 12/27/17 11:15 Dose: 25 mg Nitroglycerin (Nitro Dur) 0.4 mg TD QDAY@0600 [facility] Last Admin: 12/27/17 07:18 Dose: 0.4 mg Physical Examination Vital Signs Pulse Resp 93 H 20 12/26/17 21:30 12/26/17 21:30 General appearance: no acute distress HEENT: Positive: PERRL Cardiac: Positive: Reg Rate and Rhythm Results 12/26/17 21:51 12/26/17 21:51 Cardiac Enzymes 12/26/17 12/26/17 Range/Units 21:51 21:51 AST 19 (5-40) units/L CK-MB (CK-2) 1.9 (0.0-4.0) ng/mL Coagulation 12/26/17 Range/Units 21:51 PT 13.6 (12.2-14.9) Sec. INR 0.99 (0.87-1.13) APTT 27.3 (24.2-36.6) Sec. CBC 12/26/17 Range/Units 21:51 WBC 7.8 (4.5-11.0) K/mm3 RBC 4.39 (3.65-5.03) M/mm3 Hgb 13.4 (10.1-14.3) gm/dl Hct 39.6 (30.3-42.9) % Plt Count 219 (140-440) K/mm3 Lymph # 2.5 (1.2-5.4) K/mm3 [place] # 0.6 (0.0-0.8) K/mm3 Eos # 0.3 (0.0-0.4) K/mm3 Baso # 0.1 (0.0-0.1) K/mm3 Comprehensive Metabolic Panel 12/26/17 Range/Units 21:51 Sodium 140 (137-145) mmol/L Potassium 3.4 L (3.6-5.0) mmol/L Chloride 100.2 (98-107) mmol/L Carbon Dioxide 26 (22-30) mmol/L BUN 14 (7-17) mg/dL Creatinine 0.8 (0.7-1.2) mg/dL Glucose 213 H (65-100) mg/dL Calcium 8.7 (8.4-10.2) mg/dL AST 19 (5-40) units/L ALT 14 (7-56) units/L Alkaline Phosphatase 65 (35-129) units/L Total Protein 6.8 (6.3-8.2) g/dL Albumin 3.3 L (3.9-5) g/dL Assessment and Plan Chest pain, atypical Prior CVA with left hemiparesis Hypertension Diabetes Hx of multivessel CAD previously considered not a candidate for CABG. s/p PCI of the LAD 12/2016. Plan: We will get a persantine thallium stress test for further cardiac evaluation, tomorrow morning.
[2017-12-27] MEDS: PLAVIX PO SCH (15:15)
[2017-12-27] MEDS: IMDUR PO SCH (16:33)
[2017-12-27] MEDS: RANEXA ER PO SCH ×2 (16:33→22:10)
--- NOTE | 2017-12-27 21:17 | Event Note ---
Date: 12/27/17 PT with a history of CAD disease admitted today with chest pain. Ruthann so far are negative. Cardiology consulted. For stress thallium A/p Chest pain CAD CVA with left-sided residual weakness Diabetes mellitus type 2 hypoglycemia Hyperlipidemia Active tobacco use - Troponin was negative, EKG no change from baseline - Cardiology consulted - Resume home medications - Left lower extremity duplex DVT prophylaxis - On heparin
[2017-12-27] MEDS: LEVEMIR SUB-Q SCH (22:14)
[2017-12-28 05:21] LABS: Basophils # (Auto) 0.1 K/mm3 (0.0-0.1); Basophils % (Auto) 1.3 % (0.0-1.8); Eosinophils # (Auto) 0.4 K/mm3 (0.0-0.4); Eosinophils % (Auto) 3.9 % (0.0-4.3); Hematocrit 40.2 % (30.3-42.9); Hemoglobin 13.4 gm/dl (10.1-14.3); Lymphocytes # (Auto) 2.5 K/mm3 (1.2-5.4); Lymphocytes % (Auto) 27.3 % (13.4-35.0); Mean Corpuscular HGB Conc 33 % (30-34); Mean Corpuscular Hemoglobin 30 pg (28-32); Mean Corpuscular Volume 90 fl (79-97); Monocytes % (Auto) 10.8 % (0.0-7.3); Platelet Count 203 K/mm3 (140-440); Red Blood Count 4.45 M/mm3 (3.65-5.03); Red Cell Distribution Width 14.4 % (13.2-15.2)
[2017-12-28] MEDS: NITRO DUR TD SCH (05:38)
[2017-12-28 06:00] LABS: Alanine Aminotransferase 14 units/L (7-56); Albumin 3.3 g/dL (3.9-5); BUN/Creatinine Ratio 17; Blood Urea Nitrogen 15 mg/dL (7-17); Calcium 8.7 mg/dL (8.4-10.2); Hemolysis Index 12
[2017-12-28] MEDS: NOVOLOG SUB-Q SCH ×3 (08:16→21:06)
--- NOTE | 2017-12-28 08:26 | Progress Note ---
Subjective Date of service: 12/28/17 Objective - Constitutional Vitals: Vital Signs - 12hr 12/28/17 12/28/17 00:53 05:16 Temperature 98.2 F 97.9 F Pulse Rate 80 84 Respiratory 18 20 Rate Blood Pressure 156/73 149/79 [Left] O2 Sat by Pulse 97 100 Oximetry - Labs CBC & Chem 7: 12/28/17 05:05 12/28/17 05:05 Labs: Abnormal lab results 12/27/17 12/27/17 12/28/17 Range/Units 08:32 21:09 05:05 [place] % (Auto) 10.8 H (0.0-7.3) % [place] # 1.0 H (0.0-0.8) K/mm3 Glucose (65-100) mg/dL POC Glucose 181 H 132 H (70-105) Albumin (3.9-5) g/dL 12/28/17 Range/Units 05:05 [place] % (Auto) (0.0-7.3) % [place] # (0.0-0.8) K/mm3 Glucose 120 H (65-100) mg/dL POC Glucose (70-105) Albumin 3.3 L (3.9-5) g/dL
--- NOTE | 2017-12-28 08:27 | Progress Note ---
Assessment and Plan Chest pain CAD CVA with left-sided residual weakness Diabetes mellitus type 2 hypoglycemia Hyperlipidemia Active tobacco use - Troponin was negative, EKG no change from baseline - Cardiology consulted conservative Mx recommended - Left lower extremity duplex DVT prophylaxis - On heparin Subjective Date of service: 12/28/17 Principal diagnosis: chest pain Interval history: Pt seen and examined. No over night event. Chest pain improving. 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 wanted blood gas tested . She requested same in the ED she said Objective - Constitutional Vitals: Vital Signs - 12hr 12/28/17 12/28/17 00:53 05:16 Temperature 98.2 F 97.9 F Pulse Rate 80 84 Respiratory 18 20 Rate Blood Pressure 156/73 149/79 [Left] O2 Sat by Pulse 97 100 Oximetry General appearance: Present: no acute distress, well-nourished - EENT Eyes: PERRL, EOM intact - Neck Neck: supple, normal ROM - Respiratory Respiratory effort: normal Respiratory: bilateral: CTA - Cardiovascular Rhythm: regular Heart Sounds: Present: S1 & S2. Absent: gallop, rub Extremities: pulses intact, No edema, normal color, Full ROM - Gastrointestinal General gastrointestinal: Present: soft, non-tender, normal bowel sounds - Integumentary Integumentary: clear, warm, dry - Musculoskeletal Musculoskeletal: 1, strength equal bilaterally - Neurologic Neurologic: moves all extremities - Psychiatric Psychiatric: memory intact, appropriate mood/affect, intact judgment & insight - Labs CBC & Chem 7: 12/28/17 05:05 12/28/17 05:05 Labs: Abnormal lab results 12/27/17 12/27/17 12/28/17 Range/Units 08:32 21:09 05:05 [place] % (Auto) 10.8 H (0.0-7.3) % [place] # 1.0 H (0.0-0.8) K/mm3 Glucose (65-100) mg/dL POC Glucose 181 H 132 H (70-105) Albumin (3.9-5) g/dL 12/28/17 Range/Units 05:05 [place] % (Auto) (0.0-7.3) % [place] # (0.0-0.8) K/mm3 Glucose 120 H (65-100) mg/dL POC Glucose (70-105) Albumin 3.3 L (3.9-5) g/dL
--- NOTE | 2017-12-28 09:55 | Progress Note ---
Assessment and Plan Chest pain, atypical EKG: normal sinus rhythm, left axis deviation, no acute ST or T-wave changes. Cardiac isoenzymes are normal. Prior CVA with left hemiparesis Hypertension Diabetes Hx of multivessel CAD previously considered not a candidate for CABG. s/p PCI of the LAD 12/2016. Recommendations: Continue optimal management of her coronary artery disease. Otherwise, conservative cardiac management. Subjective Date of service: 12/28/17 Principal diagnosis: chest pain Interval history: Patient denies chest pain and shortness of breath. Objective Vital Signs Temp Pulse Resp BP BP Pulse Ox 12/28/17 08:53 98.1 F 91 H 14 164/85 100 12/28/17 05:16 97.9 F 84 20 149/79 100 12/28/17 00:53 98.2 F 80 18 156/73 97 12/27/17 22:11 81 156/73 97 12/27/17 20:30 112 H 18 178/146 100 12/27/17 20:28 95 H 14 163/125 12/27/17 20:23 81 12/27/17 19:40 71 18 132/53 100 12/27/17 19:36 69 14 132/53 100 12/27/17 19:35 20 12/27/17 19:34 98 F 88 20 98 12/27/17 19:30 76 13 129/46 82 L 12/27/17 19:15 77 20 129/46 12/27/17 19:00 72 15 127/64 99 12/27/17 18:45 15 130/100 83 L 12/27/17 18:30 79 20 127/88 98 12/27/17 18:16 82 10 L 127/88 100 12/27/17 18:00 70 16 119/58 98 12/27/17 17:45 70 16 115/57 98 12/27/17 17:30 71 9 L 113/65 100 12/27/17 17:15 70 14 114/61 98 12/27/17 17:00 79 14 118/67 97 12/27/17 16:45 70 12 112/59 99 12/27/17 16:30 73 15 118/67 97 12/27/17 16:16 83 20 115/91 97 12/27/17 16:00 71 20 108/58 115/91 100 12/27/17 15:45 70 17 120/61 99 02/08/18 15:30 77 15 108/54 93 12/27/17 15:15 72 17 108/54 99 12/27/17 15:00 70 17 120/54 99 12/27/17 14:45 67 16 120/54 97 12/27/17 14:30 70 15 112/40 98 12/27/17 14:15 77 16 112/40 95 12/27/17 14:00 66 18 114/56 95 12/27/17 13:45 68 15 121/61 99 12/27/17 13:30 67 17 125/65 100 12/27/17 13:15 71 8 L 110/58 95 12/27/17 13:00 70 8 L 102/59 83 L 12/27/17 12:46 75 9 L 102/59 94 12/27/17 12:30 63 11 L 102/59 99 12/27/17 12:15 65 11 L 103/58 100 12/27/17 12:00 66 12 110/59 98 12/27/17 11:45 72 16 103/60 99 12/27/17 11:30 76 17 114/69 100 12/27/17 11:16 82 14 135/74 72 L 12/27/17 11:00 88 13 119/68 99 12/27/17 10:45 82 17 106/66 99 12/27/17 10:30 88 19 113/71 99 12/27/17 10:15 88 21 126/71 99 12/27/17 10:00 84 17 124/70 98 - Physical Examination General: No Apparent Distress HEENT: Positive: PERRL Cardiac: Positive: Reg Rate and Rhythm Lungs: Positive: Decreased Breath Sounds Neuro: Positive: Weakness - Labs and Meds Cardiac Enzymes 12/28/17 Range/Units 05:05 AST 21 (5-40) units/L CBC 12/28/17 Range/Units 05:05 WBC 9.1 (4.5-11.0) K/mm3 RBC 4.45 (3.65-5.03) M/mm3 Hgb 13.4 (10.1-14.3) gm/dl Hct 40.2 (30.3-42.9) % Plt Count 203 (140-440) K/mm3 Lymph # 2.5 (1.2-5.4) K/mm3 [place] # 1.0 H (0.0-0.8) K/mm3 Eos # 0.4 (0.0-0.4) K/mm3 Baso # 0.1 (0.0-0.1) K/mm3 Comprehensive Metabolic Panel 12/28/17 Range/Units 05:05 Sodium 143 (137-145) mmol/L Potassium 3.8 (3.6-5.0) mmol/L Chloride 103.8 (98-107) mmol/L Carbon Dioxide 25 (22-30) mmol/L BUN 15 (7-17) mg/dL Creatinine 0.9 (0.7-1.2) mg/dL Glucose 120 H (65-100) mg/dL Calcium 8.7 (8.4-10.2) mg/dL AST 21 (5-40) units/L ALT 14 (7-56) units/L Alkaline Phosphatase 66 (35-129) units/L Total Protein 7.0 (6.3-8.2) g/dL Albumin 3.3 L (3.9-5) g/dL - Imaging and Cardiology EKG: image reviewed (no change from baseline)
[2017-12-28] MEDS: HALFPRIN EC PO SCH (11:17)
[2017-12-28] MEDS: PLAVIX PO SCH (11:18)
[2017-12-28] MEDS: IMDUR PO SCH (11:18)
[2017-12-28] MEDS: RANEXA ER PO SCH ×2 (11:21→22:43)
[2017-12-28] MEDS: LOPRESSOR PO SCH ×2 (11:21→22:41)
[2017-12-28] MEDS: HEPARIN SUB-Q SCH ×2 (11:22→22:49)
[2017-12-28] MEDS: LEVEMIR SUB-Q SCH (22:43)
[2017-12-29] MEDS: NOVOLOG SUB-Q SCH ×4 (00:02→17:33)
[2017-12-29] MEDS: NITRO DUR TD SCH (05:59)
[2017-12-29 06:33] LABS: Basophils # (Auto) 0.1 K/mm3 (0.0-0.1); Basophils % (Auto) 0.4 % (0.0-1.8); Eosinophils # (Auto) 0.2 K/mm3 (0.0-0.4); Eosinophils % (Auto) 2.1 % (0.0-4.3); Hematocrit 38.1 % (30.3-42.9); Hemoglobin 12.4 gm/dl (10.1-14.3); Lymphocytes # (Auto) 2.2 K/mm3 (1.2-5.4); Lymphocytes % (Auto) 19.1 % (13.4-35.0); Mean Corpuscular HGB Conc 33 % (30-34); Mean Corpuscular Hemoglobin 29 pg (28-32); Mean Corpuscular Volume 89 fl (79-97); Monocytes # (Auto) 1.4 K/mm3 (0.0-0.8); Monocytes % (Auto) 12.4 % (0.0-7.3); Platelet Count 229 K/mm3 (140-440); Red Blood Count 4.29 M/mm3 (3.65-5.03); Red Cell Distribution Width 14.3 % (13.2-15.2)
[2017-12-29 07:08] LABS: Alanine Aminotransferase 19 units/L (7-56); Albumin 2.9 g/dL (3.9-5); BUN/Creatinine Ratio 19; Blood Urea Nitrogen 17 mg/dL (7-17); Calcium 8.2 mg/dL (8.4-10.2); Hemolysis Index 1
--- NOTE | 2017-12-29 10:37 | Progress Note ---
Assessment and Plan 1. Angina currently stable 2. Multivessel coronary artery disease not a surgical candidate status post PCI to the LAD. 3. Essential hypertension 4. Type 2 diabetes mellitus 5. Hyperlipidemia 6. History of CVA with left hemiparesis Plan. Continue present conservative anti-ischemic cardiac medication.. Subjective Date of service: 12/29/17 Principal diagnosis: chest pain Interval history: No cardiac symptoms. Objective Vital Signs Temp Pulse Resp BP BP Pulse Ox 12/29/17 04:57 98.4 F 86 20 106/59 94 12/28/17 23:44 98.7 F 94 H 20 106/58 94 12/28/17 22:00 18 12/28/17 20:38 98.6 F 95 H 20 105/56 100 12/28/17 20:00 80 12/28/17 15:34 98.1 F 95 H 16 103/61 96 12/28/17 13:03 98.1 F 93 H 14 119/68 97 12/28/17 11:21 100 H 164/85 12/28/17 11:18 100 H 164/85 - Physical Examination General: No Apparent Distress HEENT: Positive: PERRL Neck: Positive: neck supple, trachea midline. Negative: JVD/HJR Cardiac: Positive: Reg Rate and Rhythm, S1/S2, S4, PMI, Laterally Displaced Lungs: Positive: clear to auscultation, No Wheeze, Rales, Rhonchi Neuro: Positive: Weakness, Other (left hemiparesis) Abdomen: Positive: Unremarkable, Active Bowel Sounds Extremities: Absent: edema - Labs and Meds Cardiac Enzymes 12/29/17 Range/Units 05:31 AST 31 (5-40) units/L CBC 12/29/17 Range/Units 05:31 WBC 11.7 H (4.5-11.0) K/mm3 RBC 4.29 (3.65-5.03) M/mm3 Hgb 12.4 (10.1-14.3) gm/dl Hct 38.1 (30.3-42.9) % Plt Count 229 (140-440) K/mm3 Lymph # 2.2 (1.2-5.4) K/mm3 [place] # 1.4 H (0.0-0.8) K/mm3 Eos # 0.2 (0.0-0.4) K/mm3 Baso # 0.1 (0.0-0.1) K/mm3 Comprehensive Metabolic Panel 12/29/17 Range/Units 05:31 Sodium 141 (137-145) mmol/L Potassium 3.7 (3.6-5.0) mmol/L Chloride 100.9 (98-107) mmol/L Carbon Dioxide 28 (22-30) mmol/L BUN 17 (7-17) mg/dL Creatinine 0.9 (0.7-1.2) mg/dL Glucose 118 H (65-100) mg/dL Calcium 8.2 L (8.4-10.2) mg/dL AST 31 (5-40) units/L ALT 19 (7-56) units/L Alkaline Phosphatase 59 (35-129) units/L Total Protein 6.2 L (6.3-8.2) g/dL Albumin 2.9 L (3.9-5) g/dL - Imaging and Cardiology EKG: image reviewed (no change from baseline)
[2017-12-29] MEDS: IMDUR PO SCH (11:51)
[2017-12-29] MEDS: HALFPRIN EC PO SCH (11:51)
[2017-12-29] MEDS: PLAVIX PO SCH (11:51)
[2017-12-29] MEDS: HEPARIN SUB-Q SCH ×2 (11:52→23:10)
[2017-12-29] MEDS: LOPRESSOR PO SCH ×2 (11:52→23:10)
[2017-12-29] MEDS: RANEXA ER PO SCH ×2 (11:53→23:10)
--- NOTE | 2017-12-29 16:39 | Progress Note ---
Assessment and Plan - Patient Problems (1) Chest pain Current Visit: Yes Status: Acute Plan to address problem: Patient with coronary artery disease not a candidate for any CABG a surgical procedure. Optimize medical management. Patient understands chest pain free. Discharged to [facility] when bed available. (2) History of CVA with residual deficit Current Visit: No Status: Acute Plan to address problem: Prior CVA. Patient placed back on Plavix. EKG normal troponins were negative. No evidence of persistent chest pain now. (3) Hx of gastroesophageal reflux (GERD) Current Visit: No Status: Acute (4) Diabetes Current Visit: No Status: Chronic (5) HTN (hypertension) Current Visit: No Status: Chronic History Interval history: She complains of leg pain states I usually take Aleve. This happens or long time. Hospitalist Physical - Constitutional Vitals: Temp Pulse Resp BP Pulse Ox 97.4 F L 58 L 18 141/72 98 12/29/17 13:20 12/29/17 13:20 12/29/17 13:20 12/29/17 13:20 12/29/17 13:20 General appearance: Present: no acute distress, well-nourished, disheveled, malodorous - EENT Eyes: Present: PERRL, EOM intact ENT: hearing intact, clear oral mucosa, dentition normal, poor dentition (poor dentition), other - Neck Neck: Present: supple, normal ROM - Respiratory Respiratory effort: normal Respiratory: bilateral: CTA (4 respiratory effort) - Cardiovascular Rhythm: regular Heart Sounds: Present: S1 & S2, systolic murmur - Extremities Extremities: No edema Extremity abnormal: pulses diminished, tenderness, other Peripheral Pulses: abnormal - Abdominal General gastrointestinal: soft, non-tender, non-distended - Psychiatric Psychiatric: appropriate mood/affect - Neurologic Neurologic: CNII-XII intact, focal deficits Results - Labs CBC & Chem 7: 12/29/17 05:31 12/29/17 05:31 Labs: Laboratory Last Values WBC 11.7 K/mm3 (4.5-11.0) H 12/29/17 05:31 RBC 4.29 M/mm3 (3.65-5.03) 12/29/17 05:31 Hgb 12.4 gm/dl (10.1-14.3) 12/29/17 05:31 Hct 38.1 % (30.3-42.9) 12/29/17 05:31 MCV 89 fl (79-97) 12/29/17 05:31 MCH 29 pg (28-32) 12/29/17 05:31 MCHC 33 % (30-34) 12/29/17 05:31 RDW 14.3 % (13.2-15.2) 12/29/17 05:31 Plt Count 229 K/mm3 (140-440) 12/29/17 05:31 Lymph % (Auto) 19.1 % (13.4-35.0) 12/29/17 05:31 Jay % (Auto) 12.4 % (0.0-7.3) H 12/29/17 05:31 Eos % (Auto) 2.1 % (0.0-4.3) 12/29/17 05:31 Baso % (Auto) 0.4 % (0.0-1.8) 12/29/17 05:31 Lymph # 2.2 K/mm3 (1.2-5.4) 12/29/17 05:31 Jay # 1.4 K/mm3 (0.0-0.8) H 12/29/17 05:31 Eos # 0.2 K/mm3 (0.0-0.4) 12/29/17 05:31 Baso # 0.1 K/mm3 (0.0-0.1) 12/29/17 05:31 Seg Neutrophils % 66.0 % (40.0-70.0) 12/29/17 05:31 Seg Neutrophils # 7.7 K/mm3 (1.8-7.7) 12/29/17 05:31 PT 13.6 Sec. (12.2-14.9) 12/26/17 21:51 INR 0.99 (0.87-1.13) 12/26/17 21:51 APTT 27.3 Sec. (24.2-36.6) 12/26/17 21:51 D-Dimer 489.27 ng/mlDDU (0-234) H 12/26/17 21:51 Sodium 141 mmol/L (137-145) 12/29/17 05:31 Potassium 3.7 mmol/L (3.6-5.0) 12/29/17 05:31 Chloride 100.9 mmol/L (98-107) 12/29/17 05:31 Carbon Dioxide 28 mmol/L (22-30) 12/29/17 05:31 Anion Gap 16 mmol/L 12/29/17 05:31 BUN 17 mg/dL (7-17) 12/29/17 05:31 Creatinine 0.9 mg/dL (0.7-1.2) 12/29/17 05:31 Estimated GFR > 60 ml/min 12/29/17 05:31 BUN/Creatinine Ratio 19 % 12/29/17 05:31 Glucose 118 mg/dL (65-100) H 12/29/17 05:31 POC Glucose 111 (70-105) H 12/29/17 12:26 Calcium 8.2 mg/dL (8.4-10.2) L 12/29/17 05:31 Total Bilirubin 0.70 mg/dL (0.1-1.2) 12/29/17 05:31 AST 31 units/L (5-40) 12/29/17 05:31 ALT 19 units/L (7-56) 12/29/17 05:31 Alkaline Phosphatase 59 units/L (35-129) 12/29/17 05:31 Total Creatine Kinase 83 units/L (30-135) 12/26/17 21:51 CK-MB (CK-2) 1.9 ng/mL (0.0-4.0) 12/26/17 21:51 CK-MB (CK-2) Rel Index 2.2 (0-4) 12/26/17 21:51 Troponin T < 0.010 ng/mL (0.00-0.029) 12/27/17 10:28 NT-Pro-B Natriuret Pep 35.39 pg/mL (0-900) 12/26/17 21:51 Total Protein 6.2 g/dL (6.3-8.2) L 12/29/17 05:31 Albumin 2.9 g/dL (3.9-5) L 12/29/17 05:31 Albumin/Globulin Ratio 0.9 % 12/29/17 05:31 - Imaging and Cardiology EKG: image reviewed Chest x-ray: image reviewed
[2017-12-29] MEDS: ULTRAM PO PRN (20:20)
[2017-12-29] MEDS: LEVEMIR SUB-Q SCH (23:11)
[2017-12-30] MEDS: NOVOLOG SUB-Q SCH ×5 (02:49→23:14)
[2017-12-30 05:26] LABS: Basophils % (Auto) 0.3 % (0.0-1.8); Eosinophils # (Auto) 0.3 K/mm3 (0.0-0.4); Eosinophils % (Auto) 2.8 % (0.0-4.3); Hematocrit 37.1 % (30.3-42.9); Hemoglobin 12.5 gm/dl (10.1-14.3); Lymphocytes # (Auto) 2.4 K/mm3 (1.2-5.4); Lymphocytes % (Auto) 22.2 % (13.4-35.0); Mean Corpuscular HGB Conc 34 % (30-34); Mean Corpuscular Hemoglobin 30 pg (28-32); Mean Corpuscular Volume 89 fl (79-97); Monocytes # (Auto) 1.3 K/mm3 (0.0-0.8); Monocytes % (Auto) 11.8 % (0.0-7.3); Platelet Count 204 K/mm3 (140-440); Red Blood Count 4.18 M/mm3 (3.65-5.03); Red Cell Distribution Width 14.4 % (13.2-15.2)
[2017-12-30 05:40] LABS: Alanine Aminotransferase 19 units/L (7-56); BUN/Creatinine Ratio 18; Blood Urea Nitrogen 16 mg/dL (7-17); Calcium 8.4 mg/dL (8.4-10.2); Hemolysis Index 12
[2017-12-30] MEDS: NITRO DUR TD SCH (06:15)
--- NOTE | 2017-12-30 10:16 | Progress Note ---
Assessment and Plan 1. Angina currently stable 2. Multivessel coronary artery disease not a surgical candidate status post PCI to the LAD. 3. Essential hypertension 4. Type 2 diabetes mellitus 5. Hyperlipidemia 6. History of CVA with left hemiparesis Plan. Currently chest pain free. Continue present conservative anti-ischemic cardiac medication. Subjective Date of service: 12/30/17 Principal diagnosis: chest pain Interval history: No cardiac symptoms. Objective Vital Signs Temp Pulse Resp BP BP Pulse Ox 12/30/17 08:05 97.9 F 79 16 134/70 95 12/30/17 04:29 97.7 F 85 20 152/76 93 12/30/17 00:15 98.3 F 86 20 104/63 100 12/29/17 20:18 97.7 F 74 20 110/52 97 12/29/17 20:00 70 12/29/17 16:54 98.6 F 80 18 106/63 96 12/29/17 13:20 97.4 F L 58 L 18 141/72 98 12/29/17 12:17 77 96 12/29/17 11:52 78 12/29/17 11:51 78 - Physical Examination General: Appears Well, No Apparent Distress, Other (obese) HEENT: Positive: PERRL Neck: Positive: neck supple, trachea midline. Negative: JVD/HJR Cardiac: Positive: Regular Rate, S1/S2, S3, PMI, Dilated, Laterally Displaced Lungs: Positive: clear to auscultation, No Wheeze, Rales, Rhonchi Neuro: Positive: Weakness, Other (left hemiparesis) Abdomen: Positive: Unremarkable, Active Bowel Sounds Extremities: Absent: edema - Labs and Meds Cardiac Enzymes 12/30/17 Range/Units 04:59 AST 28 (5-40) units/L CBC 12/30/17 Range/Units 04:59 WBC 10.7 (4.5-11.0) K/mm3 RBC 4.18 (3.65-5.03) M/mm3 Hgb 12.5 (10.1-14.3) gm/dl Hct 37.1 (30.3-42.9) % Plt Count 204 (140-440) K/mm3 Lymph # 2.4 (1.2-5.4) K/mm3 [place] # 1.3 H (0.0-0.8) K/mm3 Eos # 0.3 (0.0-0.4) K/mm3 Baso # 0.0 (0.0-0.1) K/mm3 Comprehensive Metabolic Panel 12/30/17 Range/Units 04:59 Sodium 139 (137-145) mmol/L Potassium 3.8 (3.6-5.0) mmol/L Chloride 100.2 (98-107) mmol/L Carbon Dioxide 27 (22-30) mmol/L BUN 16 (7-17) mg/dL Creatinine 0.9 (0.7-1.2) mg/dL Glucose 108 H (65-100) mg/dL Calcium 8.4 (8.4-10.2) mg/dL AST 28 (5-40) units/L ALT 19 (7-56) units/L Alkaline Phosphatase 62 (35-129) units/L Total Protein 6.5 (6.3-8.2) g/dL Albumin 3.0 L (3.9-5) g/dL - Imaging and Cardiology EKG: image reviewed
[2017-12-30] MEDS: LOPRESSOR PO SCH ×2 (12:07→22:58)
[2017-12-30] MEDS: IMDUR PO SCH (12:07)
[2017-12-30] MEDS: RANEXA ER PO SCH ×2 (12:07→22:58)
[2017-12-30] MEDS: HALFPRIN EC PO SCH (12:08)
[2017-12-30] MEDS: PLAVIX PO SCH (12:08)
[2017-12-30] MEDS: HEPARIN SUB-Q SCH ×2 (12:09→22:59)
--- NOTE | 2017-12-30 12:39 | Progress Note ---
Assessment and Plan - Patient Problems (1) Chest pain Current Visit: Yes Status: Acute Plan to address problem: Patient with coronary artery disease not a candidate for any CABG a surgical procedure. Optimize medical management. Patient understands chest pain free. Discharged to [facility] when bed available. (2) History of CVA with residual deficit Current Visit: No Status: Acute Plan to address problem: Prior CVA. Patient placed back on Plavix. EKG normal troponins were negative. No evidence of persistent chest pain now. Awaiting skilled nurse facility placement for disability and receives CPAP at home (3) Hx of gastroesophageal reflux (GERD) Current Visit: No Status: Acute (4) Diabetes Current Visit: No Status: Chronic Qualifiers: Diabetes mellitus type: type 2 Plan to address problem: well controlled (5) HTN (hypertension) Current Visit: No Status: Chronic Plan to address problem: well controlled History Interval history: Pt states leg feels better with the ultram and that she has arthritis Hospitalist Physical - Constitutional Vitals: Temp Pulse Resp BP Pulse Ox 97.9 F 79 16 134/70 95 12/30/17 08:05 12/30/17 08:05 12/30/17 08:05 12/30/17 08:05 12/30/17 08:05 General appearance: Present: no acute distress, well-nourished, disheveled, malodorous - EENT Eyes: Present: PERRL, EOM intact, scleral icterus, conjunctival injection. Absent: irregular pupil ENT: hearing intact, clear oral mucosa, dentition normal, oropharyngeal erythema - Neck Neck: Present: supple, normal ROM. Absent: enlarged thyroid, masses or JVD, carotid bruits - Respiratory Respiratory: bilateral: CTA - Cardiovascular Rhythm: regular Heart Sounds: Present: S1 & S2, systolic murmur - Extremities Extremities: no ischemia, pulses intact, pulses symmetrical, No edema, normal temperature Peripheral Pulses: within normal limits - Abdominal General gastrointestinal: deferred, non-tender, non-distended - Psychiatric Psychiatric: appropriate mood/affect - Neurologic Neurologic: CNII-XII intact, focal deficits Results - Labs CBC & Chem 7: 12/30/17 04:59 12/30/17 04:59 Labs: Laboratory Last Values WBC 10.7 K/mm3 (4.5-11.0) 12/30/17 04:59 RBC 4.18 M/mm3 (3.65-5.03) 12/30/17 04:59 Hgb 12.5 gm/dl (10.1-14.3) 12/30/17 04:59 Hct 37.1 % (30.3-42.9) 12/30/17 04:59 MCV 89 fl (79-97) 12/30/17 04:59 MCH 30 pg (28-32) 12/30/17 04:59 MCHC 34 % (30-34) 12/30/17 04:59 RDW 14.4 % (13.2-15.2) 12/30/17 04:59 Plt Count 204 K/mm3 (140-440) 12/30/17 04:59 Lymph % (Auto) 22.2 % (13.4-35.0) 12/30/17 04:59 [place] % (Auto) 11.8 % (0.0-7.3) H 12/30/17 04:59 Eos % (Auto) 2.8 % (0.0-4.3) 12/30/17 04:59 Baso % (Auto) 0.3 % (0.0-1.8) 12/30/17 04:59 Lymph # 2.4 K/mm3 (1.2-5.4) 12/30/17 04:59 [place] # 1.3 K/mm3 (0.0-0.8) H 12/30/17 04:59 Eos # 0.3 K/mm3 (0.0-0.4) 12/30/17 04:59 Baso # 0.0 K/mm3 (0.0-0.1) 12/30/17 04:59 Seg Neutrophils % 62.9 % (40.0-70.0) 12/30/17 04:59 Seg Neutrophils # 6.7 K/mm3 (1.8-7.7) 12/30/17 04:59 PT 13.6 Sec. (12.2-14.9) 12/26/17 21:51 INR 0.99 (0.87-1.13) 12/26/17 21:51 APTT 27.3 Sec. (24.2-36.6) 12/26/17 21:51 D-Dimer 489.27 ng/mlDDU (0-234) H 12/26/17 21:51 Sodium 139 mmol/L (137-145) 12/30/17 04:59 Potassium 3.8 mmol/L (3.6-5.0) 12/30/17 04:59 Chloride 100.2 mmol/L (98-107) 12/30/17 04:59 Carbon Dioxide 27 mmol/L (22-30) 12/30/17 04:59 Anion Gap 16 mmol/L 12/30/17 04:59 BUN 16 mg/dL (7-17) 12/30/17 04:59 Creatinine 0.9 mg/dL (0.7-1.2) 12/30/17 04:59 Estimated GFR > 60 ml/min 12/30/17 04:59 BUN/Creatinine Ratio 18 % 12/30/17 04:59 Glucose 108 mg/dL (65-100) H 12/30/17 04:59 POC Glucose 139 (70-105) H 12/30/17 12:30 Calcium 8.4 mg/dL (8.4-10.2) 12/30/17 04:59 Total Bilirubin 0.40 mg/dL (0.1-1.2) 12/30/17 04:59 AST 28 units/L (5-40) 12/30/17 04:59 ALT 19 units/L (7-56) 12/30/17 04:59 Alkaline Phosphatase 62 units/L (35-129) 12/30/17 04:59 Total Creatine Kinase 83 units/L (30-135) 12/26/17 21:51 CK-MB (CK-2) 1.9 ng/mL (0.0-4.0) 12/26/17 21:51 CK-MB (CK-2) Rel Index 2.2 (0-4) 12/26/17 21:51 Troponin T < 0.010 ng/mL (0.00-0.029) 12/27/17 10:28 NT-Pro-B Natriuret Pep 35.39 pg/mL (0-900) 12/26/17 21:51 Total Protein 6.5 g/dL (6.3-8.2) 12/30/17 04:59 Albumin 3.0 g/dL (3.9-5) L 12/30/17 04:59 Albumin/Globulin Ratio 0.9 % 12/30/17 04:59
[2017-12-30] MEDS: LEVEMIR SUB-Q SCH (22:59)
[2017-12-30] MEDS: ULTRAM PO PRN (23:12)
[2017-12-31] MEDS: NITRO DUR TD SCH (05:55)
[2017-12-31] MEDS: NOVOLOG SUB-Q SCH ×2 (07:36→11:36)
--- NOTE | 2017-12-31 10:45 | Progress Note ---
Assessment and Plan Chest pain, atypical EKG: normal sinus rhythm, left axis deviation, no acute ST or T-wave changes. Cardiac isoenzymes are normal. Prior CVA with left hemiparesis Hypertension Diabetes Hx of multivessel CAD previously considered not a candidate for CABG. s/p PCI of the LAD 12/2016. Recommendations: Continue optimal management of her coronary artery disease. Otherwise, conservative cardiac management. Stable, cardiac rouse, for discharge. Subjective Date of service: 12/31/17 Principal diagnosis: chest pain Interval history: Patient denies chest pain and shortness of breath. Objective Vital Signs Temp Pulse Resp BP BP Pulse Ox 12/31/17 08:34 98.3 F 78 16 159/67 94 12/31/17 05:55 79 120/60 12/31/17 05:10 98.6 F 96 H 120/60 12/31/17 00:27 122.0 F H 79 5 L 116/56 96 12/31/17 00:25 98.7 F 12/30/17 22:58 84 118/56 12/30/17 20:11 98.4 F 20 118/56 12/30/17 20:10 80 12/30/17 15:38 97.7 F 72 16 114/60 100 - Physical Examination General: No Apparent Distress HEENT: Positive: PERRL Neck: Positive: trachea midline Cardiac: Positive: Reg Rate and Rhythm Neuro: Positive: Weakness, Other (left hemiparesis) - Imaging and Cardiology EKG: image reviewed
[2017-12-31 12:45] VITALS: BP 137/69
--- NOTE | 2017-12-31 14:14 | Discharge Summary ---
Providers - Providers Date of Admission: 12/27/17 01:37 Attending physician: JOSE OSBORNE MD 12/27/17 05:55 Consult to Physician [CONS] Routine Consulting Provider: MARCELINO GUZMAN Reason For Exam: chest pain, cad s/p stent Place consult to:: Vincnet Marcano Notified:: yes Phone number called:: text message Was contact made?: Yes If yes, spoke with:: Vincent Time called:: :18 12/28/17 11:11 Physical Therapy Evaluation and Treat [CONS] Routine Comment: skill level for SNF Reason For Exam: eval & treat 12/28/17 11:12 Occupational Therapy Evaluate and Treat [CONS] Routine Comment: skill level for SNF Reason For Exam: eval & treat Hospitalization Condition: Fair Hospital course: 77-year-old -[place] female with past medical history significant for CVA with left-sided hemiplegia, hypertension, diabetes mellitus, hyperlipidemia , CAD status post stent placement a year ago, presented to emergency department complaining of substernal chest pain and tightness. She was admitted to medicine, ACS was ruled out. She was, managed by cardiology who recommended to medical management for coronary artery disease. Her medications were optimized. Hand she was discharged to a [facility]. Discharge diagnoses Chest pain due to coronary artery disease, stable angina History of CVA GERD Type 2 diabetes Hypertension Disposition: [id number]/TX-03 SNF [facility] Time spent for discharge: 33 minutes Core Measure Documentation - Palliative Care Palliative Care/ Comfort Measures: Not Applicable - Core Measures Any of the following diagnoses?: none Exam - Constitutional Vitals: Temp Pulse Resp BP Pulse Ox 98.3 F 78 16 137/69 94 12/31/17 12:44 12/31/17 12:44 12/31/17 12:44 12/31/17 12:44 12/31/17 12:44 General appearance: Present: no acute distress, well-nourished - EENT Eyes: Present: PERRL ENT: hearing intact, clear oral mucosa - Neck Neck: Present: supple, normal ROM - Respiratory Respiratory effort: normal Respiratory: bilateral: CTA - Cardiovascular Heart Sounds: Present: S1 & S2. Absent: rub, click - Extremities Extremities: pulses symmetrical, No edema Peripheral Pulses: within normal limits - Abdominal General gastrointestinal: Present: soft, non-tender, non-distended, normal bowel sounds Female genitourinary: Present: normal - Integumentary Integumentary: Present: clear, warm, dry - Musculoskeletal Musculoskeletal: gait normal, strength equal bilaterally - Psychiatric Psychiatric: appropriate mood/affect, intact judgment & insight - Neurologic Neurologic: CNII-XII intact, focal deficits (left hemiparesis, impaired gait), moves all extremities Plan Follow up with: PRIMARY CARE, [Referring] - 3-5 Days Prescriptions: traMADol [Ultram 50 MG tab] 50 mg PO Q6H PRN #14 tablet PRN Reason: Pain, Moderate (4-6)
[2017-12-31] MEDS: PLAVIX PO SCH (14:34)
[2017-12-31] MEDS: RANEXA ER PO SCH (14:35)
[2017-12-31] MEDS: HALFPRIN EC PO SCH (14:35)
[2017-12-31] MEDS: IMDUR PO SCH (14:35)
[2017-12-31] MEDS: HEPARIN SUB-Q SCH (14:36)
[2017-12-31] MEDS: LOPRESSOR PO SCH (14:36)
== END 2017-12-31 16:26 | DRG 303 ==
LOC: ED 21:20 → 4A 12-27 01:37
PROVIDERS: ADMIT Internal Medicine; ATTEND Internal Medicine
DX: I25.119 Atherosclerotic heart disease of native coronary artery with unspecified angina pectoris (principal); I69.354 Hemiplegia and hemiparesis following cerebral infarction affecting left non-dominant side; K21.9 Gastro-esophageal reflux disease without esophagitis; I10 Essential (primary) hypertension; E78.5 Hyperlipidemia, unspecified; Z79.82 Long term (current) use of aspirin; F17.210 Nicotine dependence, cigarettes, uncomplicated; E11.649 Type 2 diabetes mellitus with hypoglycemia without coma; Z99.3 Dependence on wheelchair; Z79.84 Long term (current) use of oral hypoglycemic drugs
CPT/HCPCS: 36415; 71275; 80053; 82550; 82553; 82962; 83880; 84484; 85025; 85379; 85610; 85730; 93005; 93010; 96374; 96375; 99406; A9270-GY; G8978-GP; G8979-GP; G8980-GP; G8987-GO; G8988-GO; J1644; J1815; J1818; J2270; J2405; Q9967